=== PATIENT | male | born 1960 | race Caucasian/White ===

== ENCOUNTER 2020-07-23 11:06 | Outpatient (REF) | payer BC, SELFPAY ==
[2020-07-23 11:53] LABS: MANUAL DIFF FLAG NO
[2020-07-23 11:58] LABS: Glucose Urine UA NEG (NEG); Leukocyte Esterase Urine NEG (NEG); Nitrite Urine NEG (NEG); PH 5.5 (5.0-8.0); Specific Gravity - Urine >= 1.030 (1.005-1.025); Urine Blood NEG (NEG); Urine Ketones NEG (NEG); Urine Protein NEG (NEG-TRACE)
[2020-07-23 11:59] LABS: Basophils Absolute Auto 0.1 X10*3/uL (0.0-0.2); Basophils Percent Auto 1.5 % (0-2); Eosinophils Absolute Auto 0.4 X10*3/uL (0.0-0.4); Eosinophils Percent Auto 6.4 % (0-4); Hemoglobin 16.4 g/dl (14.0-18.0); Imm Gran Abs Auto 0.02 X10*3/uL (0.00-0.03); Imm Gran Pct Auto 0.3 % (0.0-0.4); Lymphocytes Absolute Auto 1.4 X10*3/uL (1.2-4.9); Lymphocytes Percent Auto 21.9 % (20-40); Mean Corpuscular HGB Conc 34.2 g/dl (31.0-36.0); Mean Corpuscular Hemoglobin 33.1 pg (27.0-33.0); Mean Corpuscular Volume 96.8 fL (80-98); Mean Platelet Volume 11.6 fL (9.4-12.4); Monocytes Absolute Auto 0.7 X10*3/uL (0.1-1.2); Monocytes Percent Auto 9.9 % (2-11); Neutrophils Absolute Auto 3.9 X10*3/uL (2.0-8.3); Platelet Count 257 X10*3/uL (160-400); Red Blood Count 4.96 X10*6/uL (4.60-5.80); Red Cell Distribution Width 12.3 % (11.0-16.0); White Blood Count 6.6 X10*3/uL (4.8-10.8)
[2020-07-23 12:02] LABS: Color Urine DARK YELLOW
[2020-07-23 12:03] LABS: Appearance Urine HAZY
[2020-07-23 12:11] LABS: Mucus Urine 2+ /LPF; RBC Urine 0 /HPF (0); Squamous Epithelial Cell Urine TRACE /LPF; WBC Urine 0 /HPF (0-4)
[2020-07-23 12:12] LABS: Amorphous Sediment Urine TRACE /LPF
[2020-07-23 12:19] LABS: Alanine Aminotransferase 94 U/L (0-40); Albumin Level 4.1 g/dL (3.5-5.0); Alkaline Phosphatase 92 U/L (39-117); Anion Gap 14 (12-20); Aspartate Amino Transferase 90 U/L (5-37); Bilirubin Total 0.9 mg/dL (0.0-1.0); Blood Urea Nitrogen 8 mg/dL (9-16); Calcium 8.9 mg/dL (8.4-10.2); Carbon Dioxide 24 mmol/L (22-29); Chloride 106 mmol/L (96-108); Cholesterol 174 mg/dL; Estimated Glomerular Filt Rate > 60; Glucose Fasting 101 mg/dL (60-99); HDL Cholesterol 29 mg/dL; LDL Cholesterol Calculated 130 mg/dl; Potassium 4.5 mmol/L (3.3-5.1); Sodium 139 mmol/L (135-145); Total Protein 7.8 g/dL (6.5-8.0); Triglycerides 77 mg/dL
[2020-07-23 12:42] LABS: Prostate Specific Antigen Scr 0.28 ng/mL (<0.05-4.0)
== END 2020-07-23 11:07 | disposition home or self-care (01) ==
LOC: HO.LAB 11:06
PROVIDERS: PCP Internal Medicine; Visit Provider Internal Medicine
DX: Z00.00 Encounter for general adult medical examination without abnormal findings (principal); Z13.220 Encounter for screening for lipoid disorders; Z12.5 Encounter for screening for malignant neoplasm of prostate
CPT/HCPCS: 36415; 80053; 80061; 81001; 84153; 85025

== ENCOUNTER 2020-10-22 11:09 | Outpatient (REF) | payer BC, SELFPAY ==
[2020-10-22 13:41] LABS: Alanine Aminotransferase 96 U/L (0-40); Albumin Level 4.5 g/dL (3.5-5.0); Alkaline Phosphatase 119 U/L (39-117); Anion Gap 13 (12-20); Aspartate Amino Transferase 116 U/L (5-37); Bilirubin Total 1.4 mg/dL (0.0-1.0); Blood Urea Nitrogen 7 mg/dL (9-16); Calcium 9.3 mg/dL (8.4-10.2); Carbon Dioxide 28 mmol/L (22-29); Chloride 103 mmol/L (96-108); Estimated Glomerular Filt Rate > 60; Glucose Random 107 mg/dL (60-115); Potassium 4.3 mmol/L (3.3-5.1); Sodium 140 mmol/L (135-145); Total Protein 8.2 g/dL (6.5-8.0)
== END 2020-10-22 11:10 | disposition home or self-care (01) ==
LOC: HO.LAB 11:09
PROVIDERS: PCP Internal Medicine; Visit Provider Internal Medicine
DX: I10 Essential (primary) hypertension (principal); R79.89 Other specified abnormal findings of blood chemistry
CPT/HCPCS: 36415; 80053

== ENCOUNTER 2020-11-03 05:08 | Emergency (ER) | payer BC, SELFPAY ==
--- NOTE | 2020-11-03 | ECG_ITS ---
Test Reason : REPEAT Blood Pressure : / mmHG Vent. Rate : 079 BPM Atrial Rate : 079 BPM P-R Int : 164 ms QRS Dur : 088 ms QT Int : 380 ms P-R-T Axes : 035 023 036 degrees QTc Int : 435 ms Normal sinus rhythm Normal ECG When compared with ECG of 03-NOV-2020 05:25, No significant change was found Referred By: Nadia Banks Electronically Signed By:Jcarlos Roberto
--- NOTE | ~2020-11-03 | CT_ITS ---
EXAMINATION: CT CHEST WITHOUT CONTRAST CLINICAL INFORMATION: Left chest wall pain and clavicular pain after fall. COMPARISON: None TECHNIQUE: Multidetector volumetric CT imaging of the chest was done. Axial MIP volume rendering provided. Sagittal and coronal reformatted images were obtained. This CT examination was performed using dose optimization techniques as appropriate, variously including the following: *Automated exposure control *Adjustment of mA and/or kV according to patient size (this includes techniques or standardized protocols for targeted exams where dose is matched to indication/reason for exam; i.e. extremities or head) *Use of iterative reconstruction technique DLP: 602 mGy-cm FINDINGS: EVIDENCE SPECIALIST: Hypoexpanded lungs LUNGS: The lungs are well-expanded with left lower lobe superior segment consolidation. There is minimal right posterior pleural thickening with focal right lower lobe posterior basal segment atelectasis. Rest of the lungs are well-expanded and clear. MEDIASTINUM: Heart size and the great vessels are normal caliber. There are coronary artery calcifications. Small shotty lymph nodes seen in the mediastinum. The central trachea and the bronchi are widely patent. Thyroid lobes are symmetrical and normal. PLEURA: There is a small left pleural effusion. There is minimal right posterior pleural thickening. AXILLA: No lymphadenopathy. UPPER ABDOMEN: Visualized liver, spleen, pancreas and bilateral adrenal glands are unremarkable. No lytic or sclerotic process seen. There is mild ventral spondylosis lower cervical spine. There is a punctate radiopaque foreign body likely posterior epidural space posterior T9 vertebra. OSSEOUS STRUCTURES: No lytic or sclerotic process seen. There is mild ventral spondylosis. CT/CT chest wo con IMPRESSION: Left lower lobe consolidation with minimal left pleural effusion. Right lower lobe posterior pleural thickening with atelectatic changes.
--- NOTE | ~2020-11-03 | CT_ITS ---
EXAMINATION: CT HEAD WITHOUT CONTRAST CLINICAL INFORMATION: Fall injury. COMPARISON: Head CT dated 03/07/2009. TECHNIQUE: Contiguous axial imaging was performed from the skull base to vertex without intravenous administration of contrast. This CT examination was performed using dose optimization techniques as appropriate, variously including the following: *Automated exposure control *Adjustment of mA and/or kV according to patient size (this includes techniques or standardized protocols for targeted exams where dose is matched to indication/reason for exam; i.e. extremities or head) *Use of iterative reconstruction technique DLP: 916 mGy-cm FINDINGS: Left posterior parietal soft tissue hematoma. No underlying skull fracture. There is no acute intracranial hemorrhage, midline shift, mass effect, intra- or extra-axial fluid collection. Garcia-white matter differentiation is preserved. Asymmetry of the lateral ventricles with relative increased caliber of the right lateral ventricle relative to the left, sequelae of prior right middle cerebral artery territory infarct. Otherwise the ventricles and sulci are unremarkable. The basal cisterns are patent. The orbital contents are unremarkable bilaterally. Visualized paranasal sinuses and mastoid air cells are clear. CT/CT head/brain wo con IMPRESSION: --Left posterior parietal soft tissue hematoma. No evidence of underlying skull fracture. --No acute intracranial hemorrhage. --Sequelae of prior right MCA territory infarct.
[2020-11-03 05:30] VITALS: BP 156/106; BP 164/87; PULSE 89; PULSE 99; RESP 14; TEMP 36; O2SAT 93; O2SAT 99; BMI 31.8
--- NOTE | 2020-11-03 05:52 | ED.EXTPRO ---
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 This patient is brought in by EMS for worsening left chest wall pain after he states he fell few days ago and hit his left side. He thinks he may have hit his head at that time and lost consciousness. Otherwise, he states that the pain is increasing and is exacerbated by deep inspiration. Otherwise he denies any fever, chills, shortness of breath, palpitations. Related Data Allergies Allergy/AdvReac Type Severity Reaction Status Date / Time No Known Allergies Allergy Unverified 01/29/20 15:38 Review of Systems Review of Systems: Pertinent positives and negatives as stated in HPI 10 point review of systems is otherwise negative. PMFSH Past Medical History Source: nursing notes reviewed Medical History Hypertension Stroke Social History Social History Patient Tobacco Use Status: Never used Tobacco Use of substances other than those prescribed or required for medical reasons: No Advance Directives: No Advance Directives Information Provided: No Physical Exam Vital Signs: Vital Signs: Last Vital Signs Temp 96.8 F 11/03/20 05:30 Pulse 89 11/03/20 05:30 Resp 14 11/03/20 05:30 BP 164/87 H 11/03/20 05:30 Pulse Ox 93 11/03/20 05:30 Body Mass Index 31.8 VITAL SIGNS: Reviewed. GENERAL: Well developed, well nourished, in no acute distress. HEAD: Normocephalic/atraumatic EYES: PERRLA, EOMI OROPHARYNX: no oral lesions noted, posterior pharynx clear NECK: Supple, no adenopathy LUNGS: Normal breath sounds. No adventitious sounds or accessory muscle use. SpO2<93>, left chest wall pain on palpation without crepitus CARDIOVASCULAR: Regular rate and rhythm without noted murmurs ABDOMEN: Soft, non-tender, non-distended with bowel sounds. LEFT SHOULDER: Abrasion to the posterior shoulder without evidence of erythema/induration NEUROLOGIC: Alert and oriented x 4. Sensation to light touch were grossly intact x 4. Left upper extremity with sensation intact but motor primarily isolated to movement at shoulder at baseline. Course Course Course Narrative: This is a 60-year-old male with history and clinical presentation consistent with likely rib fractures. Signed out to Dr Jeffery. MDM - Extremity (Nontraumatic) ECG Data Attestation EKG: I personally reviewed and interpreted this ECG as follows: Prior ECG tracings: not available for review Interpretation: Normal sinus rhythm, HR -90, no evidence of acute ischemia, GA/QRS/QTC are within normal limits.
[2020-11-03] MEDS: Ketorolac Tromethamine 15 MG/ML VIAL IM (07:07)
[2020-11-03] MEDS: Acetaminophen 325 MG TABLET 975 MG PO (07:11)
[2020-11-03 07:13] VITALS: BP 165/95; PULSE 85; RESP 18; O2SAT 92
--- NOTE | 2020-11-03 07:28 | ECG_ITS ---
Test Reason : CHEST PAIN Blood Pressure : / mmHG Vent. Rate : 090 BPM Atrial Rate : 090 BPM P-R Int : 160 ms QRS Dur : 090 ms QT Int : 376 ms P-R-T Axes : 024 011 024 degrees QTc Int : 459 ms Normal sinus rhythm Cannot rule out inferior infarct Abnormal ECG When compared to the previous EKG of Changes of inferior infarct present Referred By: Nadia Banks Electronically Signed By:Jcarlos Roberto
[2020-11-03 07:46] LABS: MANUAL DIFF FLAG NO
[2020-11-03 07:49] LABS: Basophils Absolute Auto 0.1 X10*3/uL (0.0-0.2); Basophils Percent Auto 1.1 % (0-2); Eosinophils Absolute Auto 0.3 X10*3/uL (0.0-0.4); Eosinophils Percent Auto 3.2 % (0-4); Hematocrit 44.4 % (42-52); Hemoglobin 15.2 g/dl (14.0-18.0); Imm Gran Abs Auto 0.07 X10*3/uL (0.00-0.03); Imm Gran Pct Auto 0.9 % (0.0-0.4); Lymphocytes Absolute Auto 0.9 X10*3/uL (1.2-4.9); Lymphocytes Percent Auto 11.2 % (20-40); Mean Corpuscular HGB Conc 34.2 g/dl (31.0-36.0); Mean Corpuscular Volume 96.3 fL (80-98); Monocytes Absolute Auto 0.8 X10*3/uL (0.1-1.2); Monocytes Percent Auto 10.2 % (2-11); Neutrophils Absolute Auto 5.8 X10*3/uL (2.0-8.3); Neutrophils Percent Auto 73.4 % (45-73); Platelet Count 182 X10*3/uL (160-400); Red Blood Count 4.61 X10*6/uL (4.60-5.80); Red Cell Distribution Width 13.3 % (11.0-16.0); White Blood Count 7.9 X10*3/uL (4.8-10.8)
[2020-11-03 08:03] LABS: COVID-19 Test Negative (Negative); IDNOW Serial# 9DD0AD1C
[2020-11-03 08:16] LABS: Alanine Aminotransferase 54 U/L (0-40); Alkaline Phosphatase 114 U/L (39-117); Anion Gap 15 (12-20); Aspartate Amino Transferase 64 U/L (5-37); Bilirubin Total 1.2 mg/dL (0.0-1.0); Blood Urea Nitrogen 10 mg/dL (9-16); Calcium 9.3 mg/dL (8.4-10.2); Carbon Dioxide 25 mmol/L (22-29); Chloride 102 mmol/L (96-108); Creatinine Clr Calc Pharmacy 116.4; Estimated Glomerular Filt Rate > 60; Glucose Random 115 mg/dL (60-115); Potassium 4.3 mmol/L (3.3-5.1); Sodium 138 mmol/L (135-145); Total Protein 7.5 g/dL (6.5-8.0)
[2020-11-03 08:30] VITALS: BP 150/89; PULSE 81; RESP 16; O2SAT 91
--- NOTE | 2020-11-03 08:30 | PC.NURSE ---
Patient is sitting up in bed in no distress. Pt states pain is much better and now rates pain a 3/10
[2020-11-03 10:37] VITALS: BP 149/85; PULSE 73; RESP 15; O2SAT 93
== END 2020-11-03 10:39 | disposition home or self-care (01) ==
PROVIDERS: Emergency Provider Student in an Organized Health Care Education/Training Program; PCP Internal Medicine
DX: J90 Pleural effusion, not elsewhere classified (principal); I10 Essential (primary) hypertension; I69.398 Other sequelae of cerebral infarction; Z20.822 Contact with and (suspected) exposure to COVID-19
CPT/HCPCS: 36415; 70450; 71250; 80053; 85025; 87635; 93005; 96372; 99285; J1885

== ENCOUNTER 2020-12-09 12:05 | Outpatient (REF) | payer BC, SELFPAY ==
[2020-12-09 15:01] LABS: Influenza A PCR NEGATIVE (Negative); Influenza B PCR NEGATIVE (Negative); Resp Syncy Virus RNA Qual PCR NEGATIVE (Negative); SARS COV2 PCR INHOUSE NEGATIVE (Negative)
== END 2020-12-09 12:06 | disposition home or self-care (01) ==
LOC: HO.10HDLNP 12:05
PROVIDERS: PCP Internal Medicine; Visit Provider Internal Medicine
DX: Z20.822 Contact with and (suspected) exposure to COVID-19 (principal)
CPT/HCPCS: 0241U

== ENCOUNTER 2020-12-16 12:03 | Emergency (ER) | payer BC, SELFPAY ==
--- NOTE | ~2020-12-16 | XR_ITS ---
EXAMINATION: XR LUMBOSACRAL SPINE CLINICAL INFORMATION: Status post fall with pain COMPARISON: None TECHNIQUE: Three views of the lumbosacral spine. FINDINGS: There are 5 nonrib bearing lumbar vertebra. No acute fracture, spondylolisthesis, or spondylolysis is appreciated. There is facet arthropathy seen at the L5-S1 level bilaterally. Disc spaces are maintained. Pedicles are intact. There is some degenerative change involving the sacroiliac joints bilaterally with question of fusion on the left. Schmorl's nodes are seen involving the T11-L1 vertebra. XR/XR lumbar spine 2-3V IMPRESSION: Degenerative change without evidence of acute fracture, spondylolisthesis, or spondylolysis of the lumbar spine.
[2020-12-16 12:12] VITALS: BP 129/66; BP 156/93; PULSE 79; PULSE 80; RESP 16; TEMP 36.6; O2SAT 94; O2SAT 96; BMI 31.8
--- NOTE | 2020-12-16 12:40 | ED_ITS ---
HPI - Back Pain/Injury General Chief Complaint: Back Pain/Injury Stated [facility] SPASMS Time Seen by Provider: 12/16/20 12:27 Source: patient and EMS Mode of arrival: EMS Limitations: no limitations History of Present Illness HPI Narrative: 60 y/o male with history of CVA in 2008 with residual left sided weakness who presents to the ER with lower back pain after he sustained a mechanical fall at home just prior to arrival. He reports hitting hit foot on the door frame of the bathroom as he was walking out. He fell onto his left side and was unable to get up because of low back pain and spasm. He did not hit his head or lose consciousness. He has no headache or neck pain. He is not on anticoagulation. He reports intermittent low back pain similar to now but not as bad as it is right now. At rest pain 6/10 but with coughing or movement it shoots up to a 10/10. No numbness, tingling, new weakness, no incontinence. MD elicited complaint: back pain, back injury and fall Pertinent past history: prior back pain Onset (ago): minute(s) (45) Timing: constant Severity: severe Pain scale (0-10): 6 Similar Symptoms Previously: Yes Quality: dull and aching Location: right lower back and left lower back Radiation: none Exacerbating factors: movement, sitting upright and coughing/sneezing Relieving factors: immobilization Context: fall Associated symptoms: denies other symptoms Work related injury: No Related Data Previous Rx's Medication Instructions Recorded azithromycin 250 mg tablet 250 mg PO DAILY #4 tab 11/03/20 cyclobenzaprine 10 mg tablet 10 mg PO TID PRN #12 tab 12/16/20 hydrocodone 5 mg-acetaminophen 325 1 tab PO Q8H PRN #7 tab 12/16/20 mg tablet ibuprofen 600 mg tablet 600 mg PO Q8H PRN #20 tab 12/16/20 lidocaine 5 % topical patch 1 patch TOPICAL DAILY #15 ea 12/16/20 (Lidoderm) Allergies Allergy/AdvReac Type Severity Reaction Status Date / Time No Known Allergies Allergy Unverified 01/29/20 15:38 Review of Systems Review of Systems: Constitutional: No Fever, No Chills ENT/Mouth: No sore throat, No Rhinorrhea, No Swallowing Difficulty Cardiovascular: No Chest Pain, No SOB, No Orthopnea, No Edema Respiratory: No Cough, No Sputum, No Wheezing, No dyspnea Gastrointestinal: No Nausea, No Vomiting, No Diarrhea, No abdominal Pain Genitourinary: No Dysuria, No Urinary Frequency, No Hematuria Musculoskeletal: No joint pain, + Myalgias Skin: No Skin Lesions, No rash Neuro: No Weakness, No Numbness, No Dizziness, No Headache Psych: No Anxiety/Panic, No Depression Heme/Lymph: No Bruising, No Lymphadenopathy PMFSH Past Medical History Attestation statement: The following information was validated with the patient. Medical History Hypertension Stroke Social History Social History Patient Tobacco Use Status: Never used Tobacco Advance Directives: No Advance Directives Information Provided: Yes Physical Exam Vital Signs: Vital Signs: Last Vital Signs Temp 97.5 F 12/16/20 15:34 Pulse 79 12/16/20 15:34 Resp 16 12/16/20 15:34 BP 144/77 H 12/16/20 15:34 Pulse Ox 94 12/16/20 15:34 Body Mass Index 31.8 Appearance: Alert. Oriented X3. No acute distress. HEENT: normal inspection, atraumatic CVS: Normal heart rate and rhythm. Pulses normal. Respiratory: No respiratory distress. Nontender chest wall Skin: Skin warm and dry. Normal skin color. Normal skin turgor. No rashes. Back: middle lower back soft tissue tenderness with palpable spasm. no spinal tenderness. Extremities: atraumatic, no signs of injury Neuro: Oriented X 3. Left sided weakness. ambulates with slow but steady gait, dragging left foot which is his baseline. Course Course Course Narrative: 60 y/o male presenting with lower back pain s/p mechanical fall. No LOC or other injuries noted. No prodromal symptoms prior to fall. He c/o severe back pain and spasm on arrival. Pain does not radiate and he has no new weakness, no deficits. Will get lumbar spine XR to r/o compression fx. Toradol and Vicoden ordered for pain. Will reassess. Reevaluation(s) Reevaluation #1: XR showing only degenerative changes. Pain somewhat improved with meds however ROM remains limited. Laying in the stretcher not helping. Ice applied and flexeril and salonpas also ordered. Reevaluation #2: Patient is feeling better. He is up ambulating to the bathroom with slow but steady gait, baseline limp. He is stable for discharge with pain control and plan to f/u with his PCP. Discharge Plan Discharge Clinical Impression: Strain of lumbar region Qualifiers: Encounter type: initial encounter Qualified Code(s): S39.012A - Strain of muscle, fascia and tendon of lower back, initial encounter Patient Disposition: Home, Self-Care Instructions: Fall Prevention for Older Adults (ED), Low Back Strain (ED), Lower Back Exercises (ED) Additional Instructions: Your x-ray of your back did not show any acute injuries. Your pain is most likely due to musclar strain and spasm. No bending, lifting or twisting. Use ice several times per day for 20 minutes at a time for the next 48 hours and then change to heat. Take medications as prescribed to help with pain and discomfort. Follow up with your Primary Care Doctor this week. If your pain worsens, if you develop new numbness, tingling, weakness, loss of function or incontinence call 911 or come back to the ER right away for evaluation. Prescriptions: New cyclobenzaprine 10 mg tablet 10 mg PO TID PRN (Reason: muscle spasm) Qty: 12 RF: 0 lidocaine [Lidoderm] 5 % adhesive patch,medicated 1 patch topical DAILY Qty: 15 RF: 0 ibuprofen 600 mg tablet 600 mg PO Q8H PRN (Reason: pain) Qty: 20 RF: 0 hydrocodone-acetaminophen 5-325 mg tablet 1 tab PO Q8H PRN (Reason: pain) Qty: 7 RF: 0 No Action azithromycin 250 mg tablet 250 mg PO DAILY Qty: 4 RF: 0 Interventions: ED Discharge Assessment Last Done: 12/16/20 16:11 Discharge Date/Time: 12/16/20 16:12
[2020-12-16] MEDS: HYDROcodone Bit/Acetam 5/325 TABLET 1 TAB PO (12:45)
[2020-12-16] MEDS: Ketorolac Tromethamine 15 MG/ML VIAL 30 MG IM (12:46)
[2020-12-16] MEDS: Cyclobenzaprine HCl 10 MG TABLET PO (14:17)
[2020-12-16] MEDS: Lidocaine 4 % Patch ADH..PATCH 1 PATCH TRANSDERMA (14:18)
[2020-12-16 15:34] VITALS: BP 144/77; PULSE 79; RESP 16; TEMP 36.4; O2SAT 94
== END 2020-12-16 16:12 | disposition home or self-care (01) ==
PROVIDERS: Emergency Provider Emergency Medicine; PCP Internal Medicine
DX: S39.012A Strain of muscle, fascia and tendon of lower back, initial encounter (principal); X58.XXXA Exposure to other specified factors, initial encounter; Y93.9 Activity, unspecified; Y92.9 Unspecified place or not applicable; Y99.9 Unspecified external cause status; Z79.899 Other long term (current) drug therapy
CPT/HCPCS: 72100; 96372; 99284; J1885

== ENCOUNTER 2021-02-24 13:24 | Outpatient (REF) | payer BC, SELFPAY ==
[2021-02-24 13:39] LABS: MANUAL DIFF FLAG NO
[2021-02-24 14:01] LABS: Basophils Absolute Auto 0.1 X10*3/uL (0.0-0.2); Basophils Percent Auto 1.2 % (0-2); Eosinophils Absolute Auto 0.4 X10*3/uL (0.0-0.4); Eosinophils Percent Auto 6.5 % (0-4); Hematocrit 46.3 % (42-52); Hemoglobin 15.7 g/dl (14.0-18.0); Imm Gran Abs Auto 0.03 X10*3/uL (0.00-0.03); Imm Gran Pct Auto 0.5 % (0.0-0.4); Lymphocytes Absolute Auto 1.1 X10*3/uL (1.2-4.9); Mean Corpuscular HGB Conc 33.9 g/dl (31.0-36.0); Mean Corpuscular Hemoglobin 33.1 pg (27.0-33.0); Mean Corpuscular Volume 97.5 fL (80-98); Mean Platelet Volume 10.1 fL (9.4-12.4); Monocytes Absolute Auto 0.4 X10*3/uL (0.1-1.2); Monocytes Percent Auto 7.7 % (2-11); Neutrophils Absolute Auto 3.7 X10*3/uL (2.0-8.3); Neutrophils Percent Auto 64.1 % (45-73); Platelet Count 177 X10*3/uL (160-400); Red Blood Count 4.75 X10*6/uL (4.60-5.80); Red Cell Distribution Width 13.7 % (11.0-16.0); White Blood Count 5.7 X10*3/uL (4.8-10.8)
[2021-02-24 14:31] LABS: Alanine Aminotransferase 111 U/L (0-40); Albumin Level 4.4 g/dL (3.5-5.0); Alkaline Phosphatase 91 U/L (39-117); Anion Gap 17 (12-20); Aspartate Amino Transferase 142 U/L (5-37); Bilirubin Total 1.2 mg/dL (0.0-1.0); Blood Urea Nitrogen 7 mg/dL (9-16); Calcium 9.5 mg/dL (8.4-10.2); Carbon Dioxide 23 mmol/L (22-29); Chloride 105 mmol/L (96-108); Cholesterol 264 mg/dL; Estimated Glomerular Filt Rate > 60; Glucose Random 96 mg/dL (60-115); HDL Cholesterol 45 mg/dL; LDL Cholesterol Calculated 189 mg/dl; Potassium 4.5 mmol/L (3.3-5.1); Sodium 140 mmol/L (135-145); Total Protein 8.3 g/dL (6.5-8.0); Triglycerides 150 mg/dL
== END 2021-02-24 13:25 | disposition home or self-care (01) ==
LOC: HO.LAB 13:24
PROVIDERS: PCP Internal Medicine; Visit Provider Internal Medicine
DX: E78.00 Pure hypercholesterolemia, unspecified (principal); I10 Essential (primary) hypertension; Z86.73 Personal history of transient ischemic attack (TIA), and cerebral infarction without residual deficits; Z12.5 Encounter for screening for malignant neoplasm of prostate
CPT/HCPCS: 36415; 80053; 80061; 84153; 85025

== ENCOUNTER 2021-02-25 12:46 | Outpatient (REF) | payer BC, SELFPAY ==
[2021-02-25 13:33] LABS: MANUAL DIFF FLAG NO
[2021-02-25 13:37] LABS: Basophils Absolute Auto 0.1 X10*3/uL (0.0-0.2); Basophils Percent Auto 1.3 % (0-2); Eosinophils Absolute Auto 0.3 X10*3/uL (0.0-0.4); Hematocrit 47.7 % (42-52); Hemoglobin 16.2 g/dl (14.0-18.0); Imm Gran Abs Auto 0.05 X10*3/uL (0.00-0.03); Imm Gran Pct Auto 0.8 % (0.0-0.4); Lymphocytes Percent Auto 16.5 % (20-40); Mean Corpuscular Hemoglobin 33.1 pg (27.0-33.0); Mean Corpuscular Volume 97.5 fL (80-98); Mean Platelet Volume 10.3 fL (9.4-12.4); Monocytes Absolute Auto 0.5 X10*3/uL (0.1-1.2); Monocytes Percent Auto 7.8 % (2-11); Neutrophils Absolute Auto 4.3 X10*3/uL (2.0-8.3); Neutrophils Percent Auto 68.6 % (45-73); Platelet Count 189 X10*3/uL (160-400); Red Blood Count 4.89 X10*6/uL (4.60-5.80); Red Cell Distribution Width 13.9 % (11.0-16.0); White Blood Count 6.3 X10*3/uL (4.8-10.8)
[2021-02-25 14:03] LABS: B Type Natriuretic Peptide 25 pg/mL (<100)
[2021-02-25 14:04] LABS: Alanine Aminotransferase 119 U/L (0-40); Albumin Level 4.6 g/dL (3.5-5.0); Alkaline Phosphatase 94 U/L (39-117); Anion Gap 16 (12-20); Aspartate Amino Transferase 157 U/L (5-37); Bilirubin Total 1.1 mg/dL (0.0-1.0); Blood Urea Nitrogen 8 mg/dL (9-16); Calcium 9.6 mg/dL (8.4-10.2); Carbon Dioxide 25 mmol/L (22-29); Chloride 105 mmol/L (96-108); Estimated Glomerular Filt Rate > 60; Glucose Random 93 mg/dL (60-115); Potassium 4.8 mmol/L (3.3-5.1); Sodium 141 mmol/L (135-145); Total Protein 8.7 g/dL (6.5-8.0)
[2021-02-25 14:23] LABS: Thyroid Stimulating Hormone 3.46 uIU/mL (0.32-4.0)
== END 2021-02-25 12:47 | disposition home or self-care (01) ==
LOC: HO.10HDL 12:46
PROVIDERS: Visit Provider Internal Medicine
DX: Z86.73 Personal history of transient ischemic attack (TIA), and cerebral infarction without residual deficits (principal); R94.5 Abnormal results of liver function studies; I10 Essential (primary) hypertension; R60.9 Edema, unspecified
CPT/HCPCS: 36415; 80053; 83880; 84443; 85025

== ENCOUNTER 2021-12-28 11:31 | Outpatient (REF) | payer BC, SELFPAY ==
[2021-12-28 11:52] LABS: MANUAL DIFF FLAG NO
[2021-12-28 12:26] LABS: Basophils Absolute Auto 0.1 X10*3/uL (0.0-0.2); Eosinophils Absolute Auto 0.4 X10*3/uL (0.0-0.4); Eosinophils Percent Auto 5.9 % (0-4); Hematocrit 48.3 % (42.0-52.0); Hemoglobin 16.1 g/dl (14.0-18.0); Imm Gran Abs Auto 0.04 X10*3/uL (0.00-0.03); Imm Gran Pct Auto 0.6 % (0.0-0.4); Lymphocytes Percent Auto 14.6 % (20-40); Mean Corpuscular HGB Conc 33.3 g/dl (31.0-36.0); Mean Platelet Volume 10.3 fL (9.4-12.4); Monocytes Absolute Auto 0.6 X10*3/uL (0.1-1.2); Monocytes Percent Auto 8.1 % (2-11); Neutrophils Absolute Auto 4.7 x10*3/uL (2.0-8.3); Neutrophils Percent Auto 69.8 % (45-73); Platelet Count 163 X10*3/uL (160-400); Red Blood Count 5.03 X10*6/uL (4.60-5.80); White Blood Count 6.8 X10*3/uL (4.8-10.8)
[2021-12-28 13:00] LABS: Alanine Aminotransferase 189 U/L (0-40); Albumin Level 4.3 g/dL (3.5-5.0); Alkaline Phosphatase 97 U/L (39-117); Anion Gap 17 (12-20); Aspartate Amino Transferase 228 U/L (5-37); Blood Urea Nitrogen 10 mg/dL (9-16); Carbon Dioxide 24 mmol/L (22-29); Chloride 103 mmol/L (96-108); Cholesterol 223 mg/dL; Estimated Glomerular Filt Rate > 60; Glucose Fasting 102 mg/dL (60-99); HDL Cholesterol 42 mg/dL; LDL Cholesterol Calculated 166 mg/dl; Potassium 4.4 mmol/L (3.3-5.1); Sodium 140 mmol/L (135-145); Total Protein 8.4 g/dL (6.5-8.0); Triglycerides 75 mg/dL
== END 2021-12-28 11:32 | disposition home or self-care (01) ==
LOC: HO.LAB 11:31
PROVIDERS: PCP Internal Medicine; Visit Provider Internal Medicine
DX: I10 Essential (primary) hypertension (principal); K21.9 Gastro-esophageal reflux disease without esophagitis; R79.89 Other specified abnormal findings of blood chemistry
CPT/HCPCS: 36415; 80053; 80061; 85025

== ENCOUNTER 2022-03-08 10:14 | Outpatient (REF) | payer BC, SELFPAY ==
[2022-03-08 11:24] LABS: Alanine Aminotransferase 92 U/L (0-40); Albumin Level 4.5 g/dL (3.5-5.0); Alkaline Phosphatase 86 U/L (39-117); Aspartate Amino Transferase 97 U/L (5-37); Bilirubin Direct 0.3 mg/dL (0.0-0.5); Bilirubin Total 0.5 mg/dL (0.0-1.0); Total Protein 8.4 g/dL (6.5-8.0)
== END 2022-03-08 10:15 | disposition home or self-care (01) ==
LOC: HO.LAB 10:14
PROVIDERS: PCP Internal Medicine; Visit Provider Internal Medicine
DX: R79.89 Other specified abnormal findings of blood chemistry (principal)
CPT/HCPCS: 36415; 80076

== ENCOUNTER 2022-09-05 11:07 | Outpatient (REF) | payer BC, SELFPAY ==
[2022-09-05 13:54] LABS: MANUAL DIFF FLAG NO
[2022-09-05 14:06] LABS: Basophils Absolute Auto 0.1 X10*3/uL (0.0-0.2); Basophils Percent Auto 1.3 % (0-2); Eosinophils Absolute Auto 0.5 X10*3/uL (0.0-0.4); Eosinophils Percent Auto 5.2 % (0-4); Hematocrit 46.6 % (42.0-52.0); Hemoglobin 15.5 g/dl (14.0-18.0); Imm Gran Abs Auto 0.03 X10*3/uL (0.00-0.03); Imm Gran Pct Auto 0.3 % (0.0-0.4); Lymphocytes Absolute Auto 1.9 X10*3/uL (1.2-4.9); Lymphocytes Percent Auto 22.5 % (20-40); Mean Corpuscular HGB Conc 33.3 g/dl (31.0-36.0); Mean Corpuscular Hemoglobin 31.6 pg (27.0-33.0); Mean Corpuscular Volume 95.1 fL (80.0-98.0); Mean Platelet Volume 11.2 fL (9.4-12.4); Monocytes Absolute Auto 0.7 X10*3/uL (0.1-1.2); Monocytes Percent Auto 7.6 % (2-11); Neutrophils Absolute Auto 5.4 x10*3/uL (2.0-8.3); Neutrophils Percent Auto 63.1 % (45-73); Platelet Count 221 X10*3/uL (160-400); Red Cell Distribution Width 12.6 % (11.0-16.0); White Blood Count 8.6 X10*3/uL (4.8-10.8)
[2022-09-05 14:23] LABS: Alanine Aminotransferase 25 U/L (0-40); Albumin Level 4.2 g/dL (3.5-5.0); Alkaline Phosphatase 99 U/L (39-117); Anion Gap 14 (12-20); Aspartate Amino Transferase 26 U/L (5-37); Bilirubin Total 0.7 mg/dL (0.0-1.0); Blood Urea Nitrogen 8 mg/dL (9-16); Calcium 9.5 mg/dL (8.4-10.2); Carbon Dioxide 28 mmol/L (22-29); Chloride 104 mmol/L (96-108); Cholesterol 205 mg/dL; Estimated Glomerular Filt Rate > 60; Glucose Fasting 109 mg/dL (60-99); HDL Cholesterol 37 mg/dL; LDL Cholesterol Calculated 151 mg/dl; Potassium 4.3 mmol/L (3.3-5.1); Sodium 142 mmol/L (135-145); Total Protein 8.1 g/dL (6.5-8.0); Triglycerides 86 mg/dL
[2022-09-05 14:38] LABS: Prostate Specific Antigen Scr 0.23 ng/mL (<0.05-4.0)
== END 2022-09-05 11:08 | disposition home or self-care (01) ==
LOC: HO.WFDLDS 11:07
PROVIDERS: Visit Provider Internal Medicine
DX: Z00.00 Encounter for general adult medical examination without abnormal findings (principal); Z12.5 Encounter for screening for malignant neoplasm of prostate; Z86.73 Personal history of transient ischemic attack (TIA), and cerebral infarction without residual deficits
CPT/HCPCS: 36415; 80053; 80061; 84153; 85025

== ENCOUNTER 2022-12-14 13:49 | Outpatient (REF) | payer BC, SELFPAY ==
--- NOTE | ~2022-12-14 | US_ITS ---
EXAMINATION: US VENOUS WITH DOPPLER UPPER EXTREMITY, LEFT CLINICAL INFORMATION: Left arm pain evaluate for DVT COMPARISON: None available. TECHNIQUE: Ultrasound of the upper extremity is performed using compression sonography and color and pulse Doppler flow with assessment of augmentation of flow. There is also imaging and Doppler assessment of the jugular and subclavian veins. Spectral analysis with color-flow imaging is performed. FINDINGS: Respiratory variation, normal compression, and augmented flow are noted throughout the upper extremity including the axillary, brachial, cubital, and radial and ulnar veins. There is normal flow in the internal jugular and subclavian veins. There is no visible deep or superficial thrombophlebitis. If the patient's symptoms progress, a followup ultrasound in 5 -7 days might be of value to exclude proximal propagation from a nonvisualized distal arm vein. US/US venous duplex UE LT IMPRESSION: No DVT demonstrated in the left upper extremity
[2022-12-14 15:47] LABS: Alanine Aminotransferase 22 U/L (0-40); Albumin Level 4.4 g/dL (3.5-5.0); Alkaline Phosphatase 104 U/L (39-117); Anion Gap 16 (12-20); Aspartate Amino Transferase 26 U/L (5-37); Bilirubin Total 0.7 mg/dL (0.0-1.0); Blood Urea Nitrogen 9 mg/dL (9-16); Calcium 9.9 mg/dL (8.4-10.2); Carbon Dioxide 23 mmol/L (22-29); Chloride 105 mmol/L (96-108); Estimated Glomerular Filt Rate > 60; Glucose Random 94 mg/dL (60-115); Potassium 4.2 mmol/L (3.3-5.1); Sodium 140 mmol/L (135-145); Total Protein 8.8 g/dL (6.5-8.0); Uric Acid 7.3 mg/dL (3.4-7.0)
[2022-12-14 15:59] LABS: Erythrocyte Sedimentation Rate 23 MM/HR (0-15)
== END 2022-12-14 13:50 | disposition home or self-care (01) ==
LOC: HO.US 13:49
PROVIDERS: PCP Internal Medicine; Visit Provider Internal Medicine
DX: M25.562 Pain in left knee (principal); I10 Essential (primary) hypertension; Z86.73 Personal history of transient ischemic attack (TIA), and cerebral infarction without residual deficits; Z86.718 Personal history of other venous thrombosis and embolism
CPT/HCPCS: 36415; 80053; 84550; 85652; 86140; 93971

== ENCOUNTER 2023-06-29 11:38 | Outpatient (REF) | payer BC, SELFPAY ==
[2023-06-29 14:36] LABS: MANUAL DIFF FLAG NO
[2023-06-29 14:37] LABS: Basophils Absolute Auto 0.1 X10*3/uL (0.0-0.2); Basophils Percent Auto 1.2 % (0-2); Eosinophils Absolute Auto 0.3 X10*3/uL (0.0-0.4); Eosinophils Percent Auto 3.8 % (0-4); Hematocrit 46.4 % (42.0-52.0); Hemoglobin 15.2 g/dl (14.0-18.0); Imm Gran Abs Auto 0.04 X10*3/uL (0.00-0.03); Imm Gran Pct Auto 0.5 % (0.0-0.4); Lymphocytes Absolute Auto 1.3 X10*3/uL (1.2-4.9); Lymphocytes Percent Auto 15.5 % (20-40); Mean Corpuscular HGB Conc 32.8 g/dl (31.0-36.0); Mean Corpuscular Hemoglobin 29.3 pg (27.0-33.0); Mean Corpuscular Volume 89.6 fL (80.0-98.0); Mean Platelet Volume 10.7 fL (9.4-12.4); Monocytes Absolute Auto 0.6 X10*3/uL (0.1-1.2); Monocytes Percent Auto 7.7 % (2-11); Neutrophils Absolute Auto 5.8 x10*3/uL (2.0-8.3); Neutrophils Percent Auto 71.3 % (45-73); Platelet Count 244 X10*3/uL (160-400); Red Blood Count 5.18 X10*6/uL (4.60-5.80); Red Cell Distribution Width 13.2 % (11.0-16.0); White Blood Count 8.2 X10*3/uL (4.8-10.8)
[2023-06-29 15:10] LABS: Alanine Aminotransferase 24 U/L (0-40); Albumin Level 4.2 g/dL (3.5-5.0); Alkaline Phosphatase 98 U/L (39-117); Anion Gap 14 (12-20); Aspartate Amino Transferase 28 U/L (5-37); Bilirubin Total 0.9 mg/dL (0.0-1.0); Blood Urea Nitrogen 10 mg/dL (9-16); Calcium 9.5 mg/dL (8.4-10.2); Carbon Dioxide 28 mmol/L (22-29); Chloride 102 mmol/L (96-108); Cholesterol 207 mg/dL (<200); Estimated Glomerular Filt Rate > 60; Glucose Fasting 91 mg/dL (60-99); HDL Cholesterol 31 mg/dL (>40); LDL Cholesterol Calculated 155 mg/dL (<100); Potassium 4.4 mmol/L (3.3-5.1); Sodium 140 mmol/L (135-145); Total Protein 8.3 g/dL (6.5-8.0); Triglycerides 105 mg/dL (<150)
== END 2023-06-29 11:39 | disposition home or self-care (01) ==
LOC: HO.WFDLDS 11:38
PROVIDERS: Visit Provider Internal Medicine
DX: I10 Essential (primary) hypertension (principal); E78.00 Pure hypercholesterolemia, unspecified
CPT/HCPCS: 36415; 80053; 80061; 85025

== ENCOUNTER 2024-05-19 14:26 | Outpatient (REF) | payer BC, SELFPAY ==
--- OUTSIDE RECORDS SUMMARY | 2024-05-19 16:48 | XMS_ITS ---
Author Organization [facility] Address [address] [facility] [address] [place] [address] Care Team Providers Care Weekend Anchor Name Role Phone Claudy Lgoan MD Primary Care Provider Unavaila Kaden Cruz Jr REASON FOR VISIT Patient presents today for a SCREENING COLON Encounters Encounter Location Date Provider Diagnosis [facility] [address] [facility] [address] [place] [phone] 05/02/2024 Kaden Calderon Jr PLAN OF TREATMENT Next Appt Details Provider Name:Kaden cabrera Jr, 08/25/2024 09:40:00 AM, [address] [place] [address], [address], [place], [phone],
--- OUTSIDE RECORDS SUMMARY | 2024-05-19 16:48 | XMS_ITS ---
Author Organization [facility] Address [address] [place] [address] Care Team Providers Care Cocoa Milling Machine Operator Name Role Phone Claudy Logan MD Primary Care Provider UnavailKaden Persaud Jr REASON FOR VISIT r/s sunday the to august. Encounters Encounter Location Date Provider Diagnosis [facility] [address] [facility] [address] [place] [address] 04/30/2024 Kaden Calderon Jr PLAN OF TREATMENT Next Appt Details Provider Name:Kaden cabrera Jr, 08/25/2024 09:40:00 AM, [address] [facility], [address], [place], [address],
--- OUTSIDE RECORDS SUMMARY | 2024-05-19 16:49 | XMS_ITS | Patient Health Record ---
Author Organization [facility] Address [address] [place] [address] Care Team Providers Care Professor Of Architecture Name Role Phone Claudy Logan MD Primary Care Provider Kaden Starr Jr REASON FOR REFERRAL No Information SOCIAL HISTORY Sex Assigned At : Social History Observation Description Sex Assigned At Unknown Encounters Encounter Location Date Provider Diagnosis [facility] [address] [place] [address] [place] [phone] 05/02/2024 Kaden Calderon Jr [facility] [address] [place] [phone] 04/30/2024 Kaden Calderon Jr PLAN OF TREATMENT Next Appt Details Provider Name:Kaden cabrera Jr, 08/25/2024 09:40:00 AM, [address] [place] [address], [address], [place], [phone], Insurance Providers Payer Name Payer Address Payer Phone Subscriber Number Group Number Insured Name Patient Relationship to Insured Coverage Start Date Coverage End Date [facility] [address] [place], [place] [id number] PRAVEEN RICHARDSON Self - patient is the insured
[2024-05-19 17:42] LABS: MANUAL DIFF FLAG NO
[2024-05-19 17:53] LABS: Basophils Absolute Auto 0.1 X10*3/uL (0.0-0.2); Basophils Percent Auto 1.3 % (0-2); Eosinophils Absolute Auto 0.3 X10*3/uL (0.0-0.4); Hematocrit 47.7 % (42.0-52.0); Hemoglobin 15.8 g/dl (14.0-18.0); Imm Gran Abs Auto 0.05 X10*3/uL (0.00-0.03); Imm Gran Pct Auto 0.7 % (0.0-0.4); Lymphocytes Absolute Auto 1.3 X10*3/uL (1.2-4.9); Lymphocytes Percent Auto 17.8 % (20-40); Mean Corpuscular HGB Conc 33.1 g/dl (31.0-36.0); Mean Corpuscular Volume 87.5 fL (80.0-98.0); Mean Platelet Volume 10.9 fL (9.4-12.4); Monocytes Absolute Auto 0.6 X10*3/uL (0.1-1.2); Monocytes Percent Auto 8.4 % (2-11); Neutrophils Percent Auto 67.8 % (45-73); Platelet Count 237 X10*3/uL (160-400); Red Blood Count 5.45 X10*6/uL (4.60-5.80); Red Cell Distribution Width 13.8 % (11.0-16.0); White Blood Count 7.4 X10*3/uL (4.8-10.8)
[2024-05-19 18:06] LABS: Alanine Aminotransferase 43 U/L (0-40); Albumin Level 4.4 g/dL (3.5-5.0); Alkaline Phosphatase 95 U/L (39-117); Anion Gap 13 (12-20); Aspartate Amino Transferase 42 U/L (5-37); Bilirubin Total 0.7 mg/dL (0.0-1.0); Blood Urea Nitrogen 8 mg/dL (9-16); Calcium 9.5 mg/dL (8.4-10.2); Carbon Dioxide 24 mmol/L (22-29); Chloride 107 mmol/L (96-108); Estimated Glomerular Filt Rate > 60; Glucose Random 117 mg/dL (60-115); Potassium 4.2 mmol/L (3.3-5.1); Sodium 140 mmol/L (135-145); Total Protein 8.3 g/dL (6.5-8.0)
== END 2024-05-19 14:27 | disposition home or self-care (01) ==
LOC: HO.WFDLDS 14:26
PROVIDERS: Visit Provider Internal Medicine
DX: I10 Essential (primary) hypertension (principal); R74.01 Elevation of levels of liver transaminase levels
CPT/HCPCS: 36415; 80053; 85025

== ENCOUNTER 2024-09-18 11:36 | Outpatient (AMB) | payer BC, SELFPAY ==
--- NOTE | 2024-09-18 11:09 | MHC.PC.OV ---
Vital Signs 09/18/24 11:43 Weight 262 lb BP 136/80 Blood Pressure Location Rt brachial Position Sitting Pulse 80 Pulse Source Pulse Oximeter Temp 97.8 F Temp Source Axillary Pulse Oximetry (%) 95 Oxygen Delivery Method Room Air Intake Visit Reasons: Routine Energy Attorney Required: No Accompanied by: Self / Same As Patient Allergies No Known Allergies Allergy (Verified 09/19/24 09:08) Tobacco use date assessed: 09/18/24 Fall risk assessment: No Falls in past year Last assessed Fall Risk: 09/18/24 Dental Screening Dental Screen Date: 09/18/24 Did you have a dental visit in the last 12 months?: Yes Did you have a dental problem in the last 6 months where you did not have access to dental care?: No HPI HPI Comments History of Present Illness Details The patient is a 63 year old male with a past medical history of CVA 2009 s/p left hemiparesis, hypertension, GERD, elevated lfts depression presenting for follow up. Last visit May HTN: on lisinopril. Blood pressure is controlled. No chest pain, dypsnea GERD: On PPI. Follows with [email or web address]. Has a baclofen pump Colonoscopy is scheduled for tomorrow ROS CONSTITUTIONAL: Denies weight loss, fever and chills. HEENT: Denies changes in vision and hearing. RESPIRATORY: Denies SOB and cough. CV: Denies palpitations and CP GI: Denies abdominal pain, nausea, vomiting and diarrhea. : Denies dysuria and urinary frequency. MSK: Denies new myalgia and joint pain. SKIN: Denies rash and pruritus. NEUROLOGICAL: Denies headache PSYCHIATRIC: Denies recent changes in mood. PHYSICAL EXAM: GENERAL: Alert and oriented x 3. NAD EYES: EOMI. Anicteric. HENT: Moist mucous membranes. No scleral icterus. No cervical lymphadenopathy. LUNGS: Clear to auscultation bilaterally. CARDIOVASCULAR: Regular rate and rhythm. No murmur. No JVD. ABDOMEN: Soft, non-tender +bs EXTREMITIES: No edema. Non-tender. SKIN: No rashes or lesions. Warm. NEUROLOGIC: No focal neurological deficits. CN II-XII grossly intact PSYCHIATRIC: Cooperative. 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 Father No problems noted. Social History Household Members: Spouse Housing: House Are you a primary caregiver assisted living to a significant other at home: No Patient Tobacco Use Status: Never used Tobacco e-Cigarette/Vaping Use: Never Used Use of substances other than those prescribed or required for medical reasons: No Have you been hit, kicked, punched, or otherwise hurt by someone within the past year? If so, by whom?: No Are you DNR?: No Advance Directives: No Advance Directives Information Provided: Yes Advance Directives on File: No Poor oral hygiene: No service: No Current occupational status: retired Cognitive needs: No Hearing needs: No Vision needs: Yes (rx glasses) Questionnaire PHQ-9 Over the last 2 weeks, how often have you been bothered by any of the following problems? 1. Little interest or pleasure in doing things: not at all 2. Feeling down, depressed, or hopeless: not at all 3. Trouble falling or staying asleep, or sleeping too much: not at all 4. Feeling tired or having little energy: not at all 5. Poor appetite or overeating: not at all 6. Feeling bad about yourself - or that you are a failure or have let yourself or your family down: not at all 7. Trouble concentrating on things, such as reading the newspaper or watching television: not at all 8. Moving or speaking so slowly that other people could have noticed. Or the opposite - being so fidgety or restless that you have been moving around a lot more than usual: not at all 9. Thoughts that you would be better off or of hurting yourself in some way: not at all Total score: 0 Depression Screening Interpretation: Negative Depression Screening Done: Yes 33258 - PHQ-9 Billing: Yes Source: Developed by Drs. Jos Tang, Wilman Sánchez and colleagues, with an educational gabi from [employer]. Thrive Questionnaire Date Thrive assessed: 09/18/24 I am a: Patient Within the past 12 months, did the food you bought not last and you didn't have the money to get more?: Never true Within the past 12 months, did you worry whether your food would run out before you got money to buy more?: Never true Do you have trouble paying for medicines?: No Do you have trouble getting transportation to medical appointments?: No Do you have trouble paying your heating and electricity bill?: No Do you have trouble taking care of your child, family member or friend?: No Do you have trouble with day-to-day activities such as bathing, preparing meals, shopping, managing finances, etc.?: No Are you currently unemployed and looking for a job?: No Are you interested in more education?: No THRIVE Score: 0 AUDIT C Alcohol Use Questionnaire (AUDIT-C) 1. How often do you have a drink containing alcohol?: Never 3. How often do you have six or more drinks on one occasion?: Never Total Score: 0 MAHOGANY-7 AMB Questionnaire MAHOGANY-7 Date MAHOGANY - 7 assessed: 09/18/24 Feeling nervous, anxious, or on edge: 0 = Not at all Not being able to stop or control worryin = Not at all Worrying too much about different things: 0 = Not at all Trouble relaxin = Not at all Being so restless that it is hard to sit still: 0 = Not at all Becoming easily annoyed or irritable: 0 = Not at all Feeling afraid as if something awful might happen: 0 = Not at all Total MAHOGANY-7 score (0-4 normal; 5-9 mild; 10-14 moderate; 15-21 severe): 0 Source: Developed by Drs. Jos Tang, Razia Harper, Wilman Figueroa and colleagues, with an educational gabi from [employer]. Physical exam (Primary Care) Vital Signs: Last Vital Signs Temp 97.8 F 09/18/24 11:43 Pulse 80 09/18/24 11:43 BP 136/80 09/18/24 11:43 Pulse Ox 95 09/18/24 11:43 Oxygen Delivery Method Room Air 09/18/24 11:43 Tobacco/Smoking Status: Tobacco use Status Tobacco use date assessed 09/18/24 09/18/24 11:10 Patient Tobacco Use Status Never used Tobacco 09/18/24 11:10 e-Cigarette/Vaping Use Never Used 09/18/24 11:10 PHQ-9: PHQ-9 Score PHQ-9: Total score 0 09/18/24 12:06 Depression Screening Interpretation: Negative Thrive Assessment: Date of Thrive Assessment Date Thrive assessed 09/18/24 09/18/24 11:10 Coding Level of Care Code New Pt Level 4 (41667) Complex EM visit Add On G2211 Diagnoses Primary hypertension I10 Hypertension type: primary hypertension Hyperlipidemia, unspecified hyperlipidemia type E78.5 Hyperlipidemia type: unspecified Elevated glucose R73.09 History of CVA (cerebrovascular accident) Z86.73 Additional Codes PHQ-9 - 88912 - PHQ-9 Billing: Yes ([id number]) Assessment & Plan Assessment & Plan (1) Hypertension: Code(s): I10 - Essential (primary) hypertension Category: Medical Qualifiers: Hypertension type: primary hypertension Qualified Code(s): I10 - Essential (primary) hypertension (2) Hyperlipidemia: Code(s): E78.5 - Hyperlipidemia, unspecified Category: Medical Qualifiers: Hyperlipidemia type: unspecified Qualified Code(s): E78.5 - Hyperlipidemia, unspecified (3) Elevated glucose: Code(s): R73.09 - Other abnormal glucose Category: Medical (4) History of CVA (cerebrovascular accident): Code(s): Z86.73 - Personal history of transient ischemic attack (TIA), and cerebral infarction without residual deficits Category: Medical Plan 64yo to establish care past medical, surgical, social reviewed History of CVA, htn-BP is well controlled Labs ordered. Orders: Orders Lipid Panel 09/18/24 E78.5 - Hyperlipidemia, unspecified, G81.10 - Spastic hemiplegia affecting unspecified side, I10 - Essential (primary) hypertension, R73.09 - Other abnormal glucose, Z86.73 - Personal history of transient ischemic attack (TIA), and cerebral infarction without residual deficits Hemoglobin A1c 09/18/24 E78.5 - Hyperlipidemia, unspecified, G81.10 - Spastic hemiplegia affecting unspecified side, I10 - Essential (primary) hypertension, R73.09 - Other abnormal glucose, Z86.73 - Personal history of transient ischemic attack (TIA), and cerebral infarction without residual deficits Prostate Specific Antigen 09/18/24 E78.5 - Hyperlipidemia, unspecified, G81.10 - Spastic hemiplegia affecting unspecified side, I10 - Essential (primary) hypertension, R73.09 - Other abnormal glucose, Z86.73 - Personal history of transient ischemic attack (TIA), and cerebral infarction without residual deficits Comprehensive Met. Panel 09/18/24 E78.5 - Hyperlipidemia, unspecified, G81.10 - Spastic hemiplegia affecting unspecified side, I10 - Essential (primary) hypertension, R73.09 - Other abnormal glucose, Z86.73 - Personal history of transient ischemic attack (TIA), and cerebral infarction without residual deficits Complete Blood Count Auto Diff 09/18/24 E78.5 - Hyperlipidemia, unspecified, G81.10 - Spastic hemiplegia affecting unspecified side, I10 - Essential (primary) hypertension, R73.09 - Other abnormal glucose, Z86.73 - Personal history of transient ischemic attack (TIA), and cerebral infarction without residual deficits
[2024-09-18 11:43] VITALS: BP 136/80; PULSE 80; TEMP 36.6; O2SAT 95
--- OUTSIDE RECORDS SUMMARY | 2024-09-18 13:08 | XMS_ITS ---
Author Organization [facility] Address [address] [place] [phone] Care Team Providers Care Construction Area Manager Name Role Phone Claudy Logan MD Primary Care Provider Kaden Starr Jr Allergies No Known Allergies REASON FOR VISIT [...] Problem Status W/U Status Risk Notes Problem [id number] Encounter for long-term (current) use of aspirin (Z79.82) Active confirmed Problem 344330210 Colon cancer screening (Z12.11) Active confirmed Vital Signs Temperature 97.8 degrees Fahrenheit 08/26/19 25 Blood pressure systolic 001 mm Hg 08/26/19 25 Blood pressure diastolic 01 mm Hg 025 Height 73 in 08/25/2024 Weight 261 lbs 08/25/2024 BMI 34.43 kg/m2 08/25/2024 Encounters Encounter Location Date Provider Diagnosis [facility] [address] [place] [phone] 08/25/2024 Kaden Calderon Jr Colon cancer screening [...] Provider Name:Kaden cabrera Jr, 2024 10:10:00 AM, [address] [place] [address] , [place], [place], [phone], Progress Notes * TARAS RICHARDSON IIIDOB: (63 yo M)Acc No.[id number]:08/25/2024 Progress Notes Patient:?TARAS RICHARDSON III Provider:?Kaden Calderon MD :1960???Age:63 Y???Sex:Male Gurinder e:08/25/2024 Address:[address] [place], [place] [phone] Pcp:Claudy Logan MD Subjective: * Chief Complaints: [...] MD Date:?0 08/25/2024 Generated for Javier kahn/Marylou/eTransmitting on:?09/18/2024 01:08 PM EDT History and Physical Notes * [...]
--- OUTSIDE RECORDS SUMMARY | 2024-09-18 13:09 | XMS_ITS | Patient Health Record ---
Author Organization [facility] Address [address] [place] [phone] Care Team Providers Care Resident Care Coordinator Name Role Phone Claudy Logan MD Primary [...] Problem Status W/U Status Risk Notes Problem [id number] Colon cancer screening (Z12.11) Active confirmed Problem [id number] Encounter for long-term (current) use of aspirin (Z79.82) Active confirmed Vital Signs Temperature 97.8 degrees Fahrenheit 08/25/2024 Blood pressure diastolic 01 mm Hg 08/25/2024 Height 73 in 08/25/2024 Blood pressure systolic 001 mm Hg 08/25/2024 Weight 261 lbs 08/25/2024 BMI 34.43 kg/m2 08/25/2024 Encounters Encounter Location Date Provider Diagnosis [facility] [address] [place] [phone] 08/25/2024 Kaden Calderon Jr Colon cancer screening Z12.11 and Encounter for long-term (current) use of aspirin Z79.82 [facility] [address] [place] [address] 04/30/2024 Kaden Calderon Jr Assessments Encounter Date [...] Name:Kaden cabrera Jr, 2024 10:10:00 AM, [address] [facility] , [place], [place], [phone], Insurance Providers Payer Name Payer Address Payer Phone Subscriber Number Group Number Insured Name Patient Relationship to Insured Coverage Start Date Coverage End Date [facility] [address] [place], [place] [id number] [phone] [id number] PRAVEEN RICHARDSON Self - patient is the insured Medical (General) History Medical History History ICD Code CVA with left-sided weakness Hypertension Surgical History Surgery Date(Month/Year) baclofen pump 2024
--- OUTSIDE RECORDS SUMMARY | 2024-09-18 13:09 | XMS_ITS ---
Author Organization [facility] Address [address] [place] [phone] Care Team Providers Care Welt Trimming Machine Operator Name Role Phone Claudy Logan MD Primary Care Provider Kaden Starr Jr [phone] REASON FOR VISIT r/s sunday the to august. Encounters Encounter Location Date Provider Diagnosis [facility] [address] [facility] [address] [place] [phone] 04/30/2024 Kaden Calderon Jr Plan Of Treatment Next Appt Details Provider Name:Kaden cabrera Jr, 2024 10:10:00 AM, [address] [place] [address] , [place], [place], [phone], Progress Notes * PRAVEEN RICHARDSONDOB:[birth year] (63 yo M)Acc No.[id number]:04/30/2024 Patient:?PRAVEEN RICHARDSON :1960???Age:63 Y???Sex:Male Address:[address] [facility], [address] * true * Date:? Generated for Javier kahn/Marylou/eTransmitting on:?09/18/2024 01:09 PM EDT
--- OUTSIDE RECORDS SUMMARY | 2024-09-18 13:09 | XMS_ITS ---
Author Organization [facility] Address [address] [address] Care Team Providers Care Site Medical Director Name Role Phone Claudy Logan MD Primary Care Provider UnavailKaden Persaud Jr REASON FOR VISIT Patient presents today for a SCREENING COLON Encounters Encounter Location Date Provider Diagnosis [facility] [address] [address] 05/02/2024 Kaden Calderon Jr Plan Of Treatment Next Appt Details Provider Name:Kaden cabrera Jr, 2024 10:10:00 AM, [address] [place] [address] , [place], [place], [phone], Progress Notes * PRAVEEN RICHARDSON IIIDOB: (63 yo M)Acc No.[id number]:05/02/2024 Progress Notes Patient:?PRAVEEN RICHARDSON III Provider:?Kaden Calderon MD :1960???Age:63 Y???Sex:Male Gurinder e:05/02/2024 Address:[address] [place] [address] [phone] Pcp:Claudy Logan MD Subjective: * Chief [...] MD Date:?1 07/03/2023 Generated for Javier kahn/Marylou/Carolin on:?09/18/2024 01:08 PM EDT
== END 2024-09-18 13:02 | disposition home or self-care (01) ==
LOC: HO.HMCHD 11:36
PROVIDERS: PCP Internal Medicine; Visit Provider Internal Medicine
DX: I10 Essential (primary) hypertension (principal); E78.5 Hyperlipidemia, unspecified; R73.09 Other abnormal glucose; Z86.73 Personal history of transient ischemic attack (TIA), and cerebral infarction without residual deficits

== ENCOUNTER → 2024-09-18 11:36 | Outpatient (BNVA) | payer BC, SELFPAY | PROVIDERS: PCP Internal Medicine; Visit Provider Internal Medicine | DX: I10 Essential (primary) hypertension (principal); E78.5 Hyperlipidemia, unspecified; R73.09 Other abnormal glucose; K21.9 Gastro-esophageal reflux disease without esophagitis; Z86.73 Personal history of transient ischemic attack (TIA), and cerebral infarction without residual deficits; Z79.899 Other long term (current) drug therapy | CPT/HCPCS: 96127 ==

== ENCOUNTER 2024-09-19 08:36 | Day surgery (SDC) | payer BC, SELFPAY ==
--- OUTSIDE RECORDS SUMMARY | 2024-09-03 16:31 | XMS_ITS ---
Author Organization [facility] Address [address] [address] Care Team Providers Care Logging Superintendent Name Role Phone Claudy Logan MD Primary Care Provider UnavailKaden Persaud Jr REASON FOR VISIT Patient presents today for a SCREENING COLON Encounters Encounter Location Date Provider Diagnosis [facility] [address] [phone] 05/02/2024 Kaden Calderon Jr Plan Of Treatment Next Appt Details Provider Name:Kaden cabrera Jr, 2024 10:10:00 AM, [address] [place] [address] , [place], [place], [phone], Progress Notes * PRAVEEN RICHARDSON IIIDOB: (63 yo M)Acc No.[id number]:05/02/2024 Progress Notes Patient:?PRAVEEN RICHARDSON III Provider:?Kaden Calderon MD :1960???Age:63 Y???Sex:Male Gurinder e:05/02/2024 Address:[address] [place] [address] [phone] Pcp:Claudy Logan MD Subjective: * Chief Complaints: * ???1. Patient presents today for a SCREENING COLON. * Medical History:? Objective: * Vitals:? Assessment: Plan: * Treatment: * * The named appointment provid er may or may not be the originator of this progress note, and it is not deemed complete until electronically signed by the appointment provider. Sign off status: Pending * Provider:?Kaden Calderon MD Date:?1 07/03/2023 Generated for Javier kahn/Marylou/Carolin on:?09/03/2024 04:31 PM EDT
--- OUTSIDE RECORDS SUMMARY | 2024-09-03 16:31 | XMS_ITS | Patient Health Record ---
Author Organization [facility] Address [address] [place] [phone] Care Team Providers Care Senior Programmer Name Role Phone Claudy Logan MD Primary Care Provider Kaden Starr Jr Allergies No Known Allergies Reason For Referral No Information Medications Medication SIG (Take, Route, Fr equency, Duration) Notes Start Date End Date Status Aspirin 81 81 MG 1 tablet Orally Once a day Active Lisinopril 10 MG 1 tablet Orally Once a day Active Immunizations Vaccine Route Administration Date Status Comme nts Influenza Unknown 03/04/2024 Administered Social History Tobacco Use: Social History Observation Description Date Details (start date - stop date) Never Smoker NA - NA Tobacco Control (Standard) Question Answer Notes Tobacco use: Nonsmoker AUDIT-C (Standard) Question Answer Notes Did you have a drink containing alcohol in the p ast year? No Points 0 Interpretation Negative Problems Problem Type SNOMED Code ICD Code Onset Dates Problem Status W/U Status Risk Notes Problem [id number] Colon cancer screening (Z12.11) Active confirmed Problem 304553498238505 Encounter for long-term (current) use of aspirin (Z79.82) Active confirmed Vital Signs Temperature 97.8 degrees Fahrenheit 08/25/2024 Blood pressure diastolic 01 mm Hg 08/25/2024 Height 73 in 08/25/2024 Blood pressure systolic 001 mm Hg 08/25/2024 Weight 261 lbs 08/25/2024 BMI 34.43 kg/m2 08/25/2024 Encounters Encounter Location Date Provider Diagnosis [facility] [address] [place] [phone] 08/25/2024 Kaden Calderon Jr Colon cancer screening Z12.11 and Encounter for long-term (current) use of aspirin Z79.82 [facility] [address] [facility] [address] [place] [address] 04/30/2024 Kaden Calderon Jr Assessments Encounter Date Diagnosis (ICD Code) Assessment Notes Treatment Notes Treatment Clinical Notes Section Notes 08/25/2024 Colon cancer screening (ICD-10 - Z12.11) We discussed colonoscopy today. We discussed risks and benefits of the procedure today. He understands these and agrees to proceed. He is advised to stop aspirin 1 week before the procedure. 08/25/2024 Encounter for long-term (current) use of aspirin (ICD-10 - Z79.82) We discussed colonoscopy today. We discussed risks and benefits of the procedure today. He understands these and agrees to proceed. He is advised to stop aspirin 1 week before the procedure. Plan Of Treatment Future Test Test Name Order Date COLONOSCOPY 08/25/2024 Next Appt Details Provider Name:Kaden cabrera Jr, 2024 10:10:00 AM, [address] [facility] , [place], [place], [phone], Insurance Providers Payer Name Payer Address Payer Phone Subscriber Number Group Number Insured Name Patient Relationship to Insured Coverage Start Date Coverage End Date [facility] [address] [place], [place] [id number] PRAVEEN RICHARDSON Self - patient is the insured Medical (General) History Medical History History ICD Code CVA with left-sided weakness Hypertension Surgical History Surgery Date(Month/Year) baclofen pump 2024
--- OUTSIDE RECORDS SUMMARY | 2024-09-03 16:31 | XMS_ITS ---
Author Organization [facility] Address [address] [place] [phone] Care Team Providers Care Oracle Database Administrator Name Role Phone Claudy Logan MD Primary Care Provider Kaden Starr Jr [phone] Allergies No Known Allergies REASON FOR VISIT Patient presents today for a colon screening Medications Medication SIG (Take, Route, Fr equency, Duration) Notes Start Date End Date Status Aspirin 81 81 MG 1 tablet Orally Once a day Active Lisinopril 10 MG 1 tablet Orally Once a day Active Social History Tobacco Use: Social History Observation [...] Problem Status W/U Status Risk Notes Problem [id number] Encounter for long-term (current) use of aspirin (Z79.82) Active confirmed Problem [id number] Colon cancer screening (Z12.11) Active confirmed Vital Signs Temperature 97.8 degrees Fahrenheit 08/26/19 25 Blood pressure systolic 001 mm Hg 08/26/19 25 Blood pressure diastolic 01 mm Hg 025 Height 73 in 08/25/2024 Weight 261 lbs 08/25/2024 BMI 34.43 kg/m2 08/25/2024 Encounters Encounter Location Date Provider Diagnosis [facility] [address] [place] [phone] 08/25/2024 Kaden Calderon Jr Colon cancer screening Z12.11 and Encounter for long-term (current) use of aspirin Z79.82 Assessments Encounter Date Diagnosis (ICD Code) Assessment [...] Order Date COLONOSCOPY 08/25/2024 Next Appt Details Follow Up: 1 Year, Reason: Provider Name:Kaden cabrera Jr, 2024 10:10:00 AM, [address] [place] [address] , [place], [place], [phone], Progress Notes * TARAS RICHARDSON IIIDOB: (63 yo M)Acc No.[id number]:08/25/2024 Progress Notes Patient:?TARAS RICHARDSON III Provider:?Kaden Calderon MD :1960???Age:63 Y???Sex:Male Gurinder e:08/25/2024 Address:[address] [place], [place] [phone] Pcp:Claudy Logan MD Subjective: * Chief Complaints: * ???1. Patient presents today for a colon screening. * HPI: ???New symptom(s):? Taras is a pleasant 63-year-old man seen today in consultation. He has no complaints of rectal bleeding or change in his bowel habits. * ROS:?General/Constitutional:?Change in appetite?denies.?Fatigue?denies.?ENT:?Patient denies?difficulty swallowing.?Respiratory:?Patient denies?shortness of breath.?Cardiovascular:?Patient denies?chest pain.?Gastrointestinal:?Comments?See HPI for details.?Genitourinary:?Difficulty urinating?denies.?Incontinence?denies.?Musculoskeletal:?Patient denies?muscle aches.?Skin:?Patient denies?pruritis.?Neurologic:?Patient denies?low back pain.?Psychiatric:?Patient denies?mental or physical abuse.? * Medical History:?CVA with le ft-sided weakness, Hypertension. * Surgical History:?baclofen p ump 2024 . * Family History:?Father: dece ased.?Mother: .? No family history of colon cancer or liver cancer. * Social History:?Tobacco Use:?Tobacco Control (Standard)?Tobacco use:?Nonsmoker.?Miscellaneous:?Marital status: . Occupation: retired. ???Drug/Alcohol:?AUDIT-C (Standard)?Did you have a drink containing alcohol in the past year??No,?Points?0,?Interpretation?Negative.? * Medications:?Taking Aspirin 81 81 MG Tablet Delayed Release 1 tablet Orally Once a day , Taking Lisinopril 10 MG Tablet 1 tablet Orally Once a day , Medication List reviewed and reconciled with the patient * Allergies:?N.K.D.A. Objective: * Vitals:?Wt: 261 lbs, Ht: 73 in, BMI: 34.43 Index, BP: 001/01 mm Hg, Temp: 97.8, Ht-cm: 185.42, Wt-k.39. * Examination: ???General Examination: ?GENERAL APPEARANCE:?in no acute distress.?HEAD:?normocephalic.?EYES:?sclera non-icteric.?ORAL CAVITY:?mucosa moist.?NECK/THYROID:?no lymphadenopathy.?SKIN:?anicteric.?HEART:?S1, S2 normal, no murmurs.?LUNGS:?clear to auscultation bilaterally.?CHEST:?normal shape and expansion.?ABDOMEN:?soft, nontender, nondistended, bowel sounds present, no organomegaly .?EXTREMITIES:?no clubbing, cyanosis, or edema.?PSYCH:?cognitive function intact.?He ambulates with a cane and exhibits left-sided weakness. Assessment: * Assessment: 1.?Encounter for long-term ( current) use of aspirin - Z79.82 (Primary)???2.?Colon cancer screening - Z12.11??? We discussed colonoscopy tod dario. We discussed risks and benefits of the procedure today. He understands these and agrees to proceed. He is advised to stop aspirin 1 week before the procedure. Plan: * Treatment: * Procedure Codes:?3017F COLOR ECTAL CA SCREEN DOC REV, 1036F TOBACCO NON-USER, G9744 PATIENT NOT ELIG D/T ACTIVE DX HTN * Preventive Medicine:? ??Counseling:?Care goal follow-up plan:?Above Normal BMI Follow-up?Dietary management education, guidance, and counseling,?BMI management provided?Yes.? ??Screenings:?Fall Risk Screening?Fall Risk Assessment:?No falls in the past year,?Screening:?No falls in the past year,?Assessment:?Not performed, no reason specified,?Plan of Care:?Not documented, no reason specified.? * Follow Up:?1 Year * * Sign off status: Completed true * Provider:?Kaden Calderon MD Date:?0 08/25/2024 Generated for Javier kahn/Marylou/eTransmitting on:?09/03/2024 04:31 PM EDT History and Physical Notes * HPI (History of Present Illness) Category Sub-Category Detail Notes Category Not es New symptom(s) Taras is a pleasant 63-year-old man seen today in consultation. He has no complaints of rectal bleeding or change in his bowel habits. Examination Category Sub-Category Detail Notes Category Not es General Examination GENERAL APPEARANCE: in no acute di stress He ambulates with a cane and exhibits left-sided weakness HEAD: normocephalic EYES: sclera non-icteric NECK/THYROID: no lymphadenopathy HEART: S1, S2 normal, no mu rmurs CHEST: normal shape and exp ansion LUNGS: clear to auscultatio n bilaterally ABDOMEN: soft, nontender, non distended, bowel sounds present, no organomegaly SKIN: anicteric EXTREMITIES: no clubbing, cyanosi s, or edema PSYCH: cognitive function i ntact ORAL CAVITY: mucosa moist
--- OUTSIDE RECORDS SUMMARY | 2024-09-03 16:32 | XMS_ITS ---
Author Organization [facility] Address [address] [place] [phone] Care Team Providers Care Search Director Name Role Phone Claudy Logan MD Primary Care Provider Kaden Starr Jr [phone] REASON FOR VISIT r/s sunday the to august. Encounters Encounter Location Date Provider Diagnosis [facility] [address] [facility] [address] [place] [phone] 04/30/2024 Kaden Calderon Jr Plan Of Treatment Next Appt Details Provider Name:Kaden cabrera Jr, 2024 10:10:00 AM, [address] [place] [address] , [place], [place], [phone], Progress Notes * PRAVEEN RICHARDSONDOB:[birth year] (63 yo M)Acc No.[id number]:04/30/2024 Patient:?PRAVEEN RICHARDSON :1960???Age:63 Y???Sex:Male [address] [place] [place], [address] * true * Date:? Generated for Javier kahn/Marylou/eTransmitting on:?09/03/2024 04:31 PM EDT
--- NOTE | 2024-09-17 14:13 | HO.ANESPROP2 ---
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 Father No problems noted. Surgical History Surgical History History of surgery on right wrist (~1984) History of surgery (08/2024) Social History Social History Household Members: Spouse Housing: House Are you a primary post acute care registered nurse to a significant other at home: No Patient Tobacco Use Status: Never used Tobacco e-Cigarette/Vaping Use: Never Used Use of substances other than those prescribed or required for medical reasons: No Have you been hit, kicked, punched, or otherwise hurt by someone within the past year? If so, by whom?: No Are you DNR?: No Advance Directives: No Advance Directives Information Provided: Yes Advance Directives on File: No Poor oral hygiene: No service: No Current occupational status: retired Cognitive needs: No Hearing needs: No Vision needs: Yes (rx glasses) Meds Allergies Allergy/AdvReac Type Severity Reaction Status Date / Time No Known Allergies Allergy Verified 09/19/24 09:08 Home Medications ?Medication ?Instructions ?Recorded ?Confirmed ?Last Taken ?Type aspirin 81 mg chewable tablet 81 mg PO DAILY 09/17/24 09/19/24 09/10/24 History fluoxetine 20 mg capsule 20 mg PO DAILY 09/17/24 09/19/24 Unknown History lisinopril 10 mg tablet 10 mg PO DAILY 09/17/24 09/19/24 09/18/24 History omeprazole 20 mg capsule,delayed 20 mg PO DAILY PRN Gastric Reflux 09/17/24 09/19/24 Unknown History release Assessment and Plan Assessment Anesthesia Assessment: Chart Reviewed Documented by User: Yessica Barrientos MD 09/19/24 10:31 [facility] Past Medical History Medical History Presence of intrathecal baclofen pump Spasm 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 Father No problems noted. Family history of problems with anesthesia: No Surgical History Surgical History History of surgery on right wrist (~1984) History of surgery (08/2024) History of Problems with Anesthesia: No Social History Social History Household Members: Spouse Housing: House Are you a primary post acute care registered nurse to a significant other at home: No Patient Tobacco Use Status: Never used Tobacco e-Cigarette/Vaping Use: Never Used Use of substances other than those prescribed or required for medical reasons: No Have you been hit, kicked, punched, or otherwise hurt by someone within the past year? If so, by whom?: No Are you DNR?: No Advance Directives: No Advance Directives Information Provided: Yes Advance Directives on File: No Poor oral hygiene: No service: No Current occupational status: retired Cognitive needs: No Hearing needs: No Vision needs: Yes (rx glasses) Meds Allergies Allergy/AdvReac Type Severity Reaction Status Date / Time No Known Allergies Allergy Verified 09/19/24 09:08 Home Medications ?Medication ?Instructions ?Recorded ?Confirmed ?Last Taken ?Type aspirin 81 mg chewable tablet 81 mg PO DAILY 09/17/24 09/19/24 09/10/24 History fluoxetine 20 mg capsule 20 mg PO DAILY 09/17/24 09/19/24 Unknown History lisinopril 10 mg tablet 10 mg PO DAILY 09/17/24 09/19/24 09/18/24 History omeprazole 20 mg capsule,delayed 20 mg PO DAILY PRN Gastric Reflux 09/17/24 09/19/24 Unknown History release Exam Height,Weight and Vital Signs: Height 6 ft Weight 118.9 kg Vital Signs Temp Pulse Resp BP Pulse Ox O2 Del Method 09/19/24 09:10 98.1 F 73 16 142/82 H 94 Room Air Airway Mallampati Class: III TM Dist: >3cm Neck ROM: Full Loose/Missing/Broken Teeth: Yes (Missing molars. Denies broken or loose teeth ) Heart: RRR Lungs: CTAB Assessment and Plan Assessment Anesthesia Assessment: Anesthesia Plan Discussed and Chart Reviewed Final Anesthetic Review Family History of Problems with Anesthesia: No History of Problems with Anesthesia: No NPO: Yes ASA Class: III Final Preanesthetic Review: No Changes in Pt Med Stat, Meds/Allgs Chart Reviewed, Consent Obtained/Reviewed and Anes Risks/Benef Reviewed Patient Risk: Intermediate Procedure Risk: Low Assessment/Block/Sedation in SS: Assess/Block/Sedation-SS Anesthetic Plan Anesthetic Plan: TIVA Disposition: Standard PACU
[2024-09-17 15:35] VITALS: BMI 34.4
[2024-09-17 15:56] VITALS: BMI 35.3
[2024-09-19 09:10] VITALS: BP 142/82; PULSE 73; RESP 16; TEMP 36.7; O2SAT 94; BMI 35.5
[2024-09-19] MEDS: Lactated Ringers 1,000 ML 100 ML IVCONT (09:37)
--- NOTE | 2024-09-19 10:01 | MHC.SHP ---
Pre-Procedural Eval Section A - 24 Hr Update-Section A only Date of Service: 09/19/24 The patient is an INPATIENT: No Changes since office visit: No Cold of Flu in the past 2 weeks, No New Medical Problems, No Changes in Medication and No Patient answered all questions The patient has been examined within 24 hours of the surgical procedure. The History & Physical has been completed within 30 days and I have reviewed it.: Yes Section B - Complete if H&P > 30 days Chief Complaint: Encounter for screening for malignant neoplasm of Allergies: Allergies Allergy/AdvReac Type Severity Reaction Status Date / Time No Known Allergies Allergy Verified 09/19/24 09:08 Plan I have reviewed the history and physical and performed a pertinent physical examination on my patient. No changes have occurred unless specified. Time Spent With Patient Time: Total time managing care of this patient today ____ minutes.
[2024-09-19 10:53] VITALS: BP 123/80; PULSE 77; RESP 15; TEMP 36.4; O2SAT 94
--- NOTE | 2024-09-19 11:07 | OP_ITS ---
DATE OF SERVICE: 09/19/2024 SURGEON: Kaden Calderon MD INDICATIONS: Colon cancer screening. PREOPERATIVE DIAGNOSIS: POSTOPERATIVE DIAGNOSIS: PROCEDURE PERFORMED: Colonoscopy to the terminal ileum. ESTIMATED BLOOD LOSS: COMPLICATIONS: ANESTHESIA: Monitored anesthesia care. ASSISTANTS: SPECIMENS: DESCRIPTION OF PROCEDURE: A history and physical was performed. The risks and benefits of the procedure were explained to the patient and informed consent was obtained. The patient was placed in the left lateral decubitus position. A digital rectal exam was performed and was found to be normal. The Olympus pediatric video colonoscope was introduced into the rectum and advanced to the cecum. The cecum was identified by transillumination, palpation, and identification of the ileocecal valve. Examination was performed and the scope was removed. He tolerated the procedure well and was returned to recovery area in stable condition. FINDINGS: The terminal ileum was examined and appeared normal. The visualized colonic mucosa was normal. The quality of the prep was good. No polyps were identified. There was mild sigmoid diverticulosis. Retroflexed examination showed small internal hemorrhoids. IMPRESSION: Normal colonoscopy. RECOMMENDATIONS: 1. Follow up as needed. 2. Repeat colonoscopy is recommended in 10 years for average-risk individuals. MD TO Og/ROLO / [phone]
[2024-09-19 11:28] VITALS: BP 118/83; PULSE 78; RESP 17; TEMP 36.4; O2SAT 95
== END 2024-09-19 12:00 | disposition home or self-care (01) ==
PROVIDERS: PCP Internal Medicine; Visit Provider Internal Medicine Gastroenterology
PROC: 0DJD8ZZ Inspection of Lower Intestinal Tract, Via Natural or Artificial Opening Endoscopic (ICD-10-PCS; CPT 45378; principal; 2024-09-19 10:10)
DX: Z12.11 Encounter for screening for malignant neoplasm of colon (principal); K57.30 Diverticulosis of large intestine without perforation or abscess without bleeding; K64.8 Other hemorrhoids; I69.354 Hemiplegia and hemiparesis following cerebral infarction affecting left non-dominant side; I10 Essential (primary) hypertension; Z79.82 Long term (current) use of aspirin; Z79.899 Other long term (current) drug therapy; Z97.8 Presence of other specified devices; Z99.89 Dependence on other enabling machines and devices
CPT/HCPCS: 45378; J2003; J2704

== ENCOUNTER 2025-01-15 10:55 | Outpatient (AMB) | payer BC, SELFPAY ==
--- OUTSIDE RECORDS SUMMARY | 2024-05-02 05:20 | XMS_ITS ---
Author Organization [facility] Address [address] [place] [phone] Care Team Providers Care Ux Consultant Name Role Phone Desmond (RETIRED) Claudy LUBIN Primary Care Provide r Kaden Gerardo Jr REASON FOR VISIT Patient presents today for a SCREENING COLON Encounters Encounter Location Date Provider Diagnosis [facility] [address] [facility] [address] [place] [phone] 05/02/2024 Kaden Calderon Jr Plan Of Treatment No Information Progress Notes * RICHARDSON, PRAVEEN Padilla IIIDOB: (64 yo M)Acc No.[id number]:05/02/2024 Progress Notes Patient: PRAVEEN FERREIRA J III Provider: Cher Calderon MD :1960 A ge:63 Y S ex:Male Date:05/02/2024 Address:[address] [place], [place] [phone] Pcp:Claudy Logan (RETIRED )MD Subjective: * Chief Complaints: * 1 . Patient presents today for a SCREENING COLON. * Medical History: Objective: * Vitals: Assessment: Plan: * Treatment: * * The named appointment provid er may or may not be the originator of this progress note, and it is not deemed complete until electronically signed by the appointment provider. Sign off status: Pending * Provider: Cher Calderon MD Date: 1 07/03/2023 Generated for Javier kahn/Marylou/Gastonsmitting on: 0 01/15/2025 12:31 PM EDT
--- OUTSIDE RECORDS SUMMARY | 2024-09-19 06:10 | XMS_ITS ---
Author Organization [facility] Address [address] [place] [phone] Care Team Providers Care Skills Trainer Name Role Phone Desmond (RETIRED) Claudy LUBIN Primary Care Provide r Kaden Gerardo Jr REASON FOR VISIT screening Encounters Encounter Location Date Provider Diagnosis [facility] Out[facility] [address] [place] [phone] 2024 Kaden Calderon Jr Colon cancer screening Z12.11 Assessments Encounter Date Diagnosis (ICD Code) Assessment Notes Treatment Notes Treatment Clinical Notes Section Notes 2024 Colon cancer screening (ICD-10 - Z12.11) Plan Of Treatment No Information Progress Notes * PRAVEEN RICHARDSON IIIDOB: (64 yo M)Acc No.[id number]:2024 COLON WITH MAC Patient: PRAVEEN FERREIRA III Provider: Cher Cadleron MD :1960 A ge:64 Y S ex:Male Date:2024 Address:[address] [place] [address] [place], [place]-[phone] Pcp:Claudy Logan (RETIRED )MD Subjective: * Chief Complaints: * 1 . Screening. * Medical History: Objective: * Vitals: Assessment: * Assessment: 1. C olon cancer screening - Z12.11 (Primary) Plan: * Treatment: * Procedure Codes: 4 5378 DIAGNOSTIC COLONOSCOPY * * The named appointment provid er may or may not be the originator of this progress note, and it is not deemed complete until electronically signed by the appointment provider. Sign off status: Pending * Provider: Cher Calderon MD Date: 0 2024 Generated for Javier kahn/Marylou/Carolin on: 0 01/15/2025 12:31 PM EDT
--- NOTE | 2025-01-15 10:59 | MHC.PC.OV ---
Vital Signs 01/15/25 11:22 Height 6 ft Weight 258 lb BMI 35.0 BP 142/82 H Blood Pressure Location Rt brachial Position Sitting Respiration 17 Pulse 76 Pulse Source Pulse Oximeter Temp 98.3 F Temp Source Temporal Artery Scan Pulse Oximetry (%) 93 Oxygen Delivery Method Room Air Intake Visit Reasons: Routine / dr Logan Exercise Specialist Required: No Accompanied by: Self / Same As Patient Allergies No Known Allergies Allergy (Verified 01/15/25 10:59) Tobacco use date assessed: 09/18/24 Fall risk assessment: No Falls in past year Last assessed Fall Risk: 01/15/25 Dental Screening Dental Screen Date: 09/18/24 HPI HPI Comments History of Present Illness Details The patient is a 64 year old male presenting with the purpose of a follow-up appointment. He has a history of essential hypertension, hyperlipidemia, and a stroke occurring in 2018, which resulted in residual weakness on the left side. The patient reports not receiving any treatment for his hyperlipidemia in the past, citing elevated liver enzymes as a concern from ten years ago. The patient maintains activity by riding an exercise bike for an hour and practicing yoga for half an hour daily. He was previously very active, playing hockey and running. He desires to regain his ability to run and is planning a trip to [place] [employer] in October, for which he wants to improve his walking ability. The patient also reported having every experimental treatment for his post-stroke weakness, including electric therapy, none of which were successful. He expresses interest in resuming physical therapy. No headaches, chest pain, joint pains, nausea, or vomiting were reported during the conversation. Vision changes, shortness of breath, or any new weakness were denied apart from his chronic left-sided weakness. He does have a history of elevated blood pressure, recorded as 142. Medical History: - Stroke with residual left-sided weakness (2018) - Hyperlipidemia - Essential Hypertension - Major Depressive Disorder - Elevated liver enzymes Surgical History: - Intrathecal Baclofen Pump placement Medications: - Aspirin - Fluoxetine - Lisinopril - Omeprazole Social: - The patient exercises daily, including an hour on a stationary bike and half an hour of yoga - Reportedly struggled with finding handicap parking, indicating mobility limitations - Formerly very active, played hockey, participated in running events [facility] Medical History (Updated 01/15/25 @ 11:47 by Carlitos Pandey MD) Presence of intrathecal baclofen pump Spasm 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 Father No problems noted. Social History Household Members: Spouse Housing: House Are you a primary coronary care unit nurse to a significant other at home: No Patient Tobacco Use Status: Never used Tobacco e-Cigarette/Vaping Use: Never Used service: No Current occupational status: retired Cognitive needs: No Hearing needs: No Vision needs: Yes (rx glasses) Questionnaire Thrive Questionnaire Date Thrive assessed: 09/18/24 AUDIT C Alcohol Use Questionnaire (AUDIT-C) 1. How often do you have a drink containing alcohol?: Never 3. How often do you have six or more drinks on one occasion?: Never Total Score: 0 MAHOGANY-7 AMB Questionnaire MAHOGANY-7 Date MAHOGANY - 7 assessed: 09/18/24 Source: Developed by Drs. Jos Tang, Razia Harper, Wilman Figueroa and colleagues, with an educational gabi from [employer]. Review of Systems Const Details: - Cardiovascular: Reports no chest pain - Respiratory: Denies shortness of breath - Neurological: Reports chronic left-sided weakness; denies headaches and new weaknesses - Gastrointestinal: Denies nausea, vomiting, abdominal pain; reports normal bowel movements - Musculoskeletal: Denies joint pains All systems reviewed & are unremarkable except as noted in HPI and below Physical exam (Primary Care) Vital Signs: Last Vital Signs Temp 98.3 F 01/15/25 11:22 Pulse 76 01/15/25 11:22 Resp 17 01/15/25 11:22 BP 142/82 H 01/15/25 11:22 Pulse Ox 93 01/15/25 11:22 Oxygen Delivery Method Room Air 01/15/25 11:22 BMI result Body Mass Index 35.0 Tobacco/Smoking Status: Tobacco use Status Tobacco use date assessed 09/18/24 01/15/25 11:00 Patient Tobacco Use Status Never used Tobacco 01/15/25 11:00 e-Cigarette/Vaping Use Never Used 01/15/25 11:00 Thrive Assessment: Date of Thrive Assessment Date Thrive assessed 09/18/24 01/15/25 11:00 Const Other: General: +Alert and oriented, Well nourished, No acute distress. Eye: Pupils are equal, round and reactive to light, Intact accommodation, Extraocular movements are intact, Normal conjunctiva, Vision unchanged. HENT: Normocephalic, Atraumatic, Tympanic membranes are clear, Normal hearing, Oral mucosa is moist, No pharyngeal erythema, Ear canals patent. Respiratory: Lungs CTA bilaterally, No wheeze, Respirations are non-labored. Cardiovascular: Regular rate, Regular rhythm, S1 auscultated, S2 auscultated, No murmur, Good pulses equal in all extremities, Normal peripheral perfusion, No edema. Gastrointestinal: Soft, Non-tender, Non-distended, Normal bowel sounds, No organomegaly. Musculoskeletal: Normal range of motion, Normal strength on the right side, 4/5 strength on the left side, No tenderness, No deformity, Contractures present on the left side, Normal gait, Swelling in the left leg. Integumentary: Warm, Dry, [place], Intact. Neurologic: Alert, Oriented, Normal sensory, Normal motor function on the right side, Weakness on the left side, No focal defects, Cranial Nerves II-XII are grossly intact, Normal deep tendon reflexes. Psychiatric: Cooperative, Appropriate mood & affect, Normal judgment. Coding Level of Care Code Est Pt Level 4 (25856) Complex EM visit Add On G2211 Diagnoses Primary hypertension I10 Hypertension type: primary hypertension Hyperlipidemia, unspecified hyperlipidemia type E78.5 Hyperlipidemia type: unspecified History of CVA (cerebrovascular accident) Z86.73 Presence of intrathecal baclofen pump Z97.8 MDD (major depressive disorder) F32.9 Assessment & Plan Assessment & Plan (1) Hypertension: Comment: - Blood pressure was slightly elevated at 142, likely due to patient's current stress and activity level. - Encouraged dietary adjustments, particularly reducing salt intake to aid blood pressure control. - Anticipated follow-up to assess the effectiveness of these lifestyle changes. Code(s): I10 - Essential (primary) hypertension Category: Medical Qualifiers: Hypertension type: primary hypertension Qualified Code(s): I10 - Essential (primary) hypertension (2) Hyperlipidemia: Comment: - Suggests resuming lipid-lowering agent treatment, as past concerns with liver enzyme elevations seem less concerning based on recent levels. - Upcoming lab work to further evaluate cholesterol levels; consideration of starting lipid-lowering medication dependent on results. Code(s): E78.5 - Hyperlipidemia, unspecified Category: Medical Qualifiers: Hyperlipidemia type: unspecified Qualified Code(s): E78.5 - Hyperlipidemia, unspecified (3) History of CVA (cerebrovascular accident): Comment: - Recommended physical therapy to address and improve left-sided weakness, particularly to prepare for anticipated physical activity at [employer]. - Recognized the patient?s goal of returning to running; outlined that physical therapy may support regaining function over time. Code(s): Z86.73 - Personal history of transient ischemic attack (TIA), and cerebral infarction without residual deficits Category: Medical (4) Presence of intrathecal baclofen pump: Comment: - The pump is functioning well; issues noticed during previous reductions in baclofen were noted Code(s): Z97.8 - Presence of other specified devices Category: Medical (5) MDD (major depressive disorder): Code(s): F32.9 - Major depressive disorder, single episode, unspecified Plan: - Continued use of fluoxetine is advisable; patient did not express any current mental health concerns during the conversation. Plan During today's visit, we addressed the patient's hypertension, hyperlipidemia, and the effects of his historical stroke. I explained that managing high cholesterol is crucial, and the patient's liver enzyme levels will be re-evaluated with lab tests. We discussed the potential need to restart statins, considering past liver function concerns have diminished. The importance of continuing physical activity to manage his blood pressure and overall health was underscored. I also detailed the advantages of resuming physical therapy to address lingering post-stroke weakness. The patient received the suggestion of telehealth as an alternative for future consultations due to potential parking inconveniences. Orders: Orders Comprehensive Met. Panel Today I10 - Essential (primary) hypertension Lipid Panel Today I10 - Essential (primary) hypertension PT Evaluation and Treatment Today Z86.73 - Personal history of transient ischemic attack (TIA), and cerebral infarction without residual deficits Complete Blood Count Auto Diff Today I10 - Essential (primary) hypertension Hemoglobin A1c Today I10 - Essential (primary) hypertension TSH reflex Free T4 Today I10 - Essential (primary) hypertension Vitamin D 25-OH Total Today I10 - Essential (primary) hypertension OT Evaluation and Treatment Today Z86.73 - Personal history of transient ischemic attack (TIA), and cerebral infarction without residual deficits Patient Instructions: - Continue taking prescribed medications: Aspirin, Fluoxetine, Lisinopril, Omeprazole. - Start reducing salt intake in your diet. - Maintain regular exercise: biking and yoga. - Plan for physical therapy sessions to improve left-side strength. - Get your blood work done as scheduled for cholesterol, vitamin D, and thyroid assessment. - Monitor blood pressure at home and report any significant changes. - Schedule a telehealth visit in two months for follow-up.
[2025-01-15 11:22] VITALS: BP 142/82; PULSE 76; RESP 17; TEMP 36.8; O2SAT 93; BMI 35.0
--- OUTSIDE RECORDS SUMMARY | 2025-01-15 12:31 | XMS_ITS | Clinical Summary ---
Author Organization [facility] Address [address] [facility] [address] [place] [phone] Phone Care Team Providers Care Service Team Leader Name Role Phone Claudy Logan MD Primary Care Provider Social History Tobacco Use Types Packs/Day Years Used Date Smoking Tobacco: Never Assessed Education Answer Date Recorded Are you interested in more education? Not on kim e 09/09/2022 Are you concerned about learning? Not on file 09/09/2022 No 09/09/2022 No 09/09/2022 Digital Access Answer Date Recorded No 10/08/2022 No 10/08/2022 No 10/08/2022 Reliable internet access at home? Not on file 10/08/2022 Device with a working camera? Not on file Sex and Gender Information Value Date Recorded Sex Assigned at Not on file Legal Sex Male 5:52 PM EST Gender Identity Not on file Sexual Orientation Not on file Plan of Treatment Health Maintenance Due Date Last Done Comments LIPID PANEL 1958 DEPRESSION SCREENING 1970 SMOKING Hx and SMOKELESS TOBACCO SCREENING 09/20/1971 HEPATITIS C SCREENING 1976 COLOGUARD 09/20/2003 COLONOSCOPY 09/20/2003 COLORECTAL CANCER SCREENING 09/20/2003 FIT TEST 09/20/2003 FOBT 09/20/2003 SIGMOIDOSCOPY 09/20/2003 VIRTUAL COLONOSCOPY 09/20/2003 ZOSTER VACCINES (1 of 2) 2008 PNEUMOCOCCAL VACCINES (50+ years) (2 of 2 - PCV) 01/07/2020 01/06/2019 COVID-19 VACCINE ( season) 2024 08/27/2020, 08/23/2020, 08/04/2020, Additional history exists Adult Td,Tdap Booster 01/09/2027 01/09/2017 , 10/01/2006, 10/01/2006 RSV VACCINE (1 - 1-dose 75+ series) 2033 HEPATITIS A VACCINES Aged Out 10/09/2018 No long er eligible based on patient's age to complete this topic HIB VACCINES Aged Out No longer eligi ble based on patient's age to complete this topic MENINGOCOCCAL VACCINES (ACWY) Aged Out No longer eligible based on patient's age to complete this topic MENINGOCOCCAL VACCINES (B) Aged Out N o longer eligible based on patient's age to complete this topic Medical Devices Not on file Insurance [facility] P[employer] EPO [employer] [employer] [facility] [employer] EPO [place], [place] [facility] [employer] [facility] [employer]PO [facility] [employer] [facility] [employer] EPO [facility] [place] [address] [place] [address] PPO EPO [employer] P[employer] EPO Care Teams Service Team Leader Relationship Specialty Start Date End Date Claudy Logan MD [address] [place] [address] [place] [address] PCP - General Internal Medicine 01/09/18 Additional Source Comments The information contained in this document represents components of the legal health record. It is not the complete legal health record.[facility]
--- OUTSIDE RECORDS SUMMARY | 2025-01-15 12:31 | XMS_ITS | Encounter Summary ---
Author Organization [facility] Address [address] [facility] [address] [place] [address] Phone Care Team Providers Care Papeterie Table Assembler Name Role Phone Claudy Logan MD Primary Care Provider Claudy Logan MD Primary Care Provider Reason for Referral * Physical Therapy (Routine) - Closed Specialty Diagnoses / Procedures Referred By Contac t Referred To Contact Physical Therapy Diagnoses Encounter for rehabilitation Juancarlos Sims MD Phone: tel: fax: [email or web address] [address] [place] [address] Phone: tel: Referral ID Status Reason Start Date Expiration Date Visits Re quested Visits Authorized [id number] Closed 01/09/2018 11/10/2018 34 34 Encounter Details Date Type Department Care Team (Latest Contact Info) Description 12/12/2017 Transcribe Orders [facility] [address] [place] [address] Claudy Logan MD [address] [place] [address] [place] [address] Encounter for rehabilitation (Primary Dx) Social History Tobacco Use Types Packs/Day Years Used Date Smoking Tobacco: Never Assessed Sex and Gender Information Value Date Recorded Sex Assigned at Not on file Legal Sex Male 5:52 PM EST Gender Identity Not on file Sexual Orientation Not on file documented as of this encounter Plan of Treatment Scheduled Referrals Name Type Priority Associated Diagnoses Orde r Schedule Ambulatory referral to [facility] Physical Therapy Outpatient Referral Routine Encounter for rehabilitation Ordered: 12/12/2017 documented as of this encounter Visit Diagnoses Diagnosis Encounter for rehabilitation- Primary documented in this encounter Care Teams Papeterie Table Assembler Relationship Specialty Start Date End Date Claudy Logan MD [address] [place] [address] [place] [address] PCP - General Internal Medicine 06/29/17 01/08/18 Claudy Logan MD [address] [place] [address] [place] [address] PCP - General Internal Medicine 01/09/18 documented as of this encounter Additional Source Comments The information contained in this document represents components of the legal health record. It is not the complete legal health record.[facility]
--- OUTSIDE RECORDS SUMMARY | 2025-01-15 12:31 | XMS_ITS | Patient Health Record ---
Author Organization [facility] Address [address] [place] [id number] Care Team Providers Care Roll Icer Machine Name Role Phone Desmond (RETIRED) Claudy LUBIN Primary Care Provide r Kaden Gerardo Jr Allergies No Known Allergies Reason For [...] Problem Status W/U Status Risk Notes Problem [id number] Colon cancer screening (Z12.11) Active confirmed Problem [id number] Encounter for long-term (current) use of aspirin (Z79.82) Active confirmed Vital Signs Temperature 97.8 degrees Fahrenheit 08/25/2024 Blood pressure diastolic 01 mm Hg 08/25/2024 Height 73 in 08/25/2024 Blood pressure systolic 001 mm Hg 08/25/2024 Weight 261 lbs 08/25/2024 BMI 34.43 kg/m2 08/25/2024 Encounters Encounter Location Date Provider Diagnosis [facility] [address] [place] [phone] 2024 Kaden Calderon Jr Colon cancer screening Z12.11 [facility] [address] [place] [address] 08/25/2024 Kaden Calderon Jr Colon cancer screening Z12.11 and Encounter for long-term (current) use of aspirin Z79.82 [facility] [address] [place] [phone] 04/30/2024 Kaden Calderon Jr Assessments Encounter Date Diagnosis (ICD Code) Assessment Notes Treatment Notes Treatment Clinical Notes Section Notes 2024 Colon cancer screening (ICD-10 - Z12.11) 08/25/2024 Colon cancer screening (ICD-10 - Z12.11) [...] Test Test Name Order Date COLONOSCOPY 08/25/2024 Insurance Providers Payer Name Payer Address Payer Phone Subscriber Number Group Number Insured Name Patient Relationship to Insured Coverage Start Date Coverage End Date [facility] [address] [place], [place] [id number] PRAVEEN RICHARDSON Self - patient is the insured Medical (General) History Medical History History ICD Code CVA with left-sided weakness Hypertension Surgical History Surgery Date(Month/Year) baclofen pump 2024
--- OUTSIDE RECORDS SUMMARY | 2025-01-15 12:31 | XMS_ITS | Encounter Summary ---
Author Organization [facility] Address [address] [place] [phone] Phone Care Team Providers Care Site Supervising Technical Operator Name Role Phone Pcp, Unknown Primary Care Provider Claudy Menezes MD Primary Care Provider Claudy Logan MD Primary Care Provider Encounter Details Date Type Department Care Team (Late st Contact Info) Description 06/28/2017 Ancillary Orders Virtual Department [address] [place] [address] Katya Strickland, ILEANA [address] [place] [phone] Low back pain, unspecified back pain laterality, unspecified chronicity, with sciatica presence unspecified Social History Tobacco Use Types Packs/Day Years Used Date Smoking Tobacco: Never Assessed Sex and Gender Information Value Date Recorded Sex Assigned at Not on file Legal Sex Male 5:52 PM EST Gender Identity Not on file Sexual Orientation Not on file documented as of this encounter Plan of Treatment Not on file documented as of this encounter Results * XR LUMBOSACRAL SPINE 4 OR MORE VIEWS (06/29/2017 1:12 PM EST) Anatomical Region Laterality Modality L-spine Radiographic Cris ging 06/29/2017 1:45 PM EST Impressions 06/29/2017 1:49 PM EST Lumbar spondylosis with mild mid to lower lumbar disc space narrowing and bony spurring. No compression fracture or subluxation is seen. Mild facet joint sclerosis without pars defects seen. S/S: Low back pain, lumbar spondylosis, difficulty walking POS - [id number] Narrative 06/29/2017 1:49 PM EST COMPARISON: None FINDINGS: AP, lateral, both oblique, and coned-down views of the lumbar spine are obtained. The pedicles appear intact. There is loss of disc space height evident at L3-4 and L4-5 with mild bony spurring. No compression fracture or acute subluxation is seen. On oblique views there is mild lower lumbar facet joint sclerosis. No pars defects are seen. The SI joints are notable for some mild sclerosis on the left. What is likely a nerve stimulator is evident extending from the right at the L4 level. Procedure Note Denys Manuel MD - 06/29/2017 COMPARISON: None FINDINGS: AP, lateral, both oblique, and coned-down views of the lumbar spine areobtained. The pedicles appear intact. There is loss of disc space height evident at L3-4 and L4-5 with mild bonyspurring. No compression fracture or acute subluxation is seen. On oblique views there is mild lower lumbar facet joint sclerosis. No parsdefects are seen. The SI joints are notable for some mild sclerosis on the left. What is likely a nerve stimulator is evident extending from the right atthe L4 level. IMPRESSION: Lumbar spondylosis with mild mid to lower lumbar disc space narrowing andbony spurring. No compression fracture or subluxation is seen. Mild facetjoint sclerosis without pars defects seen. S/S: Low back pain, lumbar spondylosis, difficulty walking POS - [id number] Katya Strickland DESK EDITOR IMG XR SPINE Final Result documented in this encounter Visit Diagnoses Diagnosis Low back pain, unspecified back pain laterality, unspecified chronicity, with sciatica presence unspecified Low back pain, unspecified back pain laterality, unspecified chronicity, with sciatica presence unspecified documented in this encounter Care Teams Site Supervising Technical Operator Relationship Specialty Start Date End Date Pcp, Unknown PCP - General 06/28/17 06/28/17 Claudy Logan MD [address] [place] [address] [place] [address] PCP - General Internal Medicine 06/29/17 01/08/18 Claudy Logan MD [address] [place] [address] Dr Brice, NIKKI [address] PCP - General Internal Medicine 01/09/18 documented as of this encounter Additional Source Comments The information contained in this document represents components of the legal health record. It is not the complete legal health record.[facility]
--- OUTSIDE RECORDS SUMMARY | 2025-01-15 12:31 | XMS_ITS | Encounter Summary ---
Author Organization [facility] Address [address] [address] Phone Care Team Providers Care Visual Educator Name Role Phone Claudy Logan MD Primary Care Provider Claudy Logan MD Primary Care Provider Reason for Referral * Physical Therapy (Routine) - Closed Specialty Diagnoses / Procedures Referred By Contisaiah t Referred To Contact Diagnoses Encounter for rehabilitation System, Provider Not In, PhD [address] [address] Phone: tel: Referral ID Status Reason Start Date Expiration Date Visits Re quested Visits Authorized [id number] Closed 06/29/2017 06/29/2018 50 50 Encounter Details Date Type Department Care Team (Latest Contact Info) Description 06/29/2017 Transcribe Orders [facility] [address] [place] [phone] Katya Strickland NP [address] [place] [address] Encounter for rehabilitation (Primary Dx) Social History [...] Diagnoses Orde r Schedule Ambulatory referral to [facility] Physical Therapy Outpatient Referral Routine Encounter for rehabilitation Ordered: 06/29/2017 documented as of this encounter Visit Diagnoses Diagnosis Encounter for rehabilitation- Primary documented in this encounter Care Teams Visual Educator Relationship Specialty Start Date End Date Claudy Logan MD [address] [place] [address] [place] [address] PCP - General Internal Medicine 06/29/17 01/08/18 Claudy Logan MD [address] [place] [address] Dr PINEDO Cody [place] [address] PCP - General Internal Medicine 01/09/18 documented as of this encounter Additional Source Comments The information contained in this document represents components of the legal health record. It is not the complete legal health record.[facility]
== END 2025-01-15 14:06 | disposition home or self-care (01) ==
PROVIDERS: PCP Student in an Organized Health Care Education/Training Program; Visit Provider Student in an Organized Health Care Education/Training Program
DX: I10 Essential (primary) hypertension (principal); E78.5 Hyperlipidemia, unspecified; Z86.73 Personal history of transient ischemic attack (TIA), and cerebral infarction without residual deficits; Z97.8 Presence of other specified devices; F32.9 Major depressive disorder, single episode, unspecified

== ENCOUNTER 2025-02-19 12:39 | Outpatient (REF) | payer BC, SELFPAY ==
[2025-02-19 14:14] LABS: MANUAL DIFF FLAG NO
[2025-02-19 14:51] LABS: Hematocrit 49.5 % (42.0-52.0); Hemoglobin 16.0 g/dl (14.0-18.0); Imm Gran Abs Auto 0.07 X10*3/uL (0.00-0.03); Imm Gran Pct Auto 0.7 % (0.0-0.4); Lymphocytes Absolute Auto 1.4 X10*3/uL (1.2-4.9); Mean Corpuscular HGB Conc 32.3 g/dl (31.0-36.0); Mean Corpuscular Hemoglobin 28.7 pg (27.0-33.0); Mean Corpuscular Volume 88.7 fL (80.0-98.0); NRBC Abs Auto 0.000 X10*3/uL (0.0-0.012); NRBC Pct Auto 0.0 /100WBC (0.0-0.2); Platelet Count 264 X10*3/uL (160-400); Red Blood Count 5.58 X10*6/uL (4.60-5.80); White Blood Count 9.8 X10*3/uL (4.8-10.8)
[2025-02-19 16:57] LABS: Alanine Aminotransferase 54 U/L (0-40); Albumin Level 4.6 g/dL (3.5-5.0); Alkaline Phosphatase 111 U/L (39-117); Anion Gap 12 (12-20); Aspartate Amino Transferase 43 U/L (5-37); Blood Urea Nitrogen 9 mg/dL (9-16); Calcium 9.2 mg/dL (8.4-10.2); Carbon Dioxide 28 mmol/L (22-29); Chloride 106 mmol/L (96-108); Cholesterol 219 mg/dL (<200); Estimated Glomerular Filt Rate > 60; HDL Cholesterol 33 mg/dL (>40); Potassium 4.2 mmol/L (3.3-5.1); Sodium 142 mmol/L (135-145); Total Protein 8.2 g/dL (6.5-8.0); Triglycerides 105 mg/dL (<150)
== END 2025-02-19 12:40 | disposition home or self-care (01) ==
LOC: HO.LAB 12:39
PROVIDERS: PCP Student in an Organized Health Care Education/Training Program; Visit Provider Student in an Organized Health Care Education/Training Program
DX: Z13.21 Encounter for screening for nutritional disorder (principal); Z13.1 Encounter for screening for diabetes mellitus; I10 Essential (primary) hypertension
CPT/HCPCS: 36415; 80053; 80061; 82306; 83036; 84443; 85025

== ENCOUNTER 2025-03-19 14:00 | Outpatient (RCR) | payer BC, SELFPAY ==
--- NOTE | 2025-02-19 14:11 | MHC.OT.EP ---
[facility] Office [address] [phone] F: [phone] F: [phone] Occupational Therapy Plan of Care Patient Name: Taras Prince Date of Evaluation: 02/19/25 Diagnosis: Left Hand Weakness Pain Location: Pain free at most times Some pain and tightness w/ stretching Assessment: 64 yo male w/ hx of stroke in 2008, lost all use of left side with more return in leg than leg. He has been through several rounds of therapy for OT and PT and reports using all sorts of things for therapy . He reports he has lost some of his mobility over the past year, but there has been no significant change. He does have Baclofen pump (10 years) and reports some results w/ muscle spasticity. On assessment today, pt w/ limited, but functional range in elbow and shoulder with good strength within available range. He has high tone through out UE, but higher distally with non-functional hand for active grasping or object manipulation and use. LUE impairments are chronic with 16 year old stroke, and high expectations for functional return, but at this time w/ will focus therapy on home program to facilitate reduction of tone, increase passive and active range through LUE and works towards functional grasp and release of left hand to assist w/ object manipulation and bimanual tasks. Frequency and Duration: The patient will be seen 2x/wk for 4 weeks Short Term Goals: Ind w/ self AA/PROM to LUE all joint Pt to demo ease w/ active left digit extension Pt to demo good follow through w/ muscle inhibition for reduction of tone Senior Living Goals: Pt to demo active grasp and release of 1lb object for functional use of left hand w/ daily tasks Pt to demo active wrist flex/ext to facilitate tenodesis pattern to assist w/ grasping and release Pt to report ease w/ left hand grasp on object to play with grandchildren (hopeful to grasp hockey stick) Treatment Plan: Therapeutic Exercise Therapeutic Activity Home Exercise Program Splinting Neuro Re-ed Patient Education ADL Training NMES MHP Joint Mobilization Soft Tissue Mobilization Kinesiotaping Electronically Signed By: Shani Graves, OTR/L Please Sign and return to therapist. Thank you once again for your referral.
--- NOTE | 2025-03-20 10:32 | MHC.OT.DC ---
[facility] Office [address] [phone] F: [phone] F: [phone] Occupational Therapy Discharge Note Patient Name: Chao Oconnor Provider: Carlitos Pandey Diagnosis: Left Hand Weakness Date of Surgery: Date of Evaluation: 02/19/25 Date of Discharge: Treatments to Date: 7 Cancellations to Date: No Shows to Date: Discharge Status: Improved Function Independent with HEP Discharge Summary: Pt tolerated therapy well today; his Genevieve was present today to go over HEP / stretching/ use of heat at home to decrease tone. Pt was a pleasure to work with, Thank you for including our OT team in his POC! Electronically Signed By: Farheen Gutierrez OTR/L Reviewed/agree with student documentation: N/A Therapist: Please Sign and return to therapist, thank you for your referral.
== END 2025-03-20 10:32 | disposition home or self-care (01) ==
LOC: HO.OT 14:00
PROVIDERS: PCP Student in an Organized Health Care Education/Training Program; Visit Provider Student in an Organized Health Care Education/Training Program
DX: G81.92 Hemiplegia, unspecified affecting left dominant side (principal); R53.1 Weakness
CPT/HCPCS: 29125; 97110; 97112; 97140; 97165; 97530; 97760

== ENCOUNTER 2025-04-16 12:34 | Outpatient (AMB) | payer BC, SELFPAY ==
--- NOTE | 2025-04-16 12:23 | A.OFFPC_ITS ---
Intake Visit Reasons: 3 month f/u Allergies No Known Allergies Allergy (Verified 01/15/25 10:59) Medication List - Last Reconciled 04/16/25 by Carlitos Pandey MD amlodipine 5 mg PO DAILY [Ankle Foot Orthosis As directed] aspirin 81 mg PO DAILY fluoxetine 20 mg PO DAILY lisinopril 10 mg PO DAILY 90 days omeprazole 20 mg PO DAILY PRN Tobacco use date assessed: 09/18/24 Dental Screening Dental Screen Date: 09/18/24 HPI HPI Comments History of Present Illness Details History of Present Illness The patient is a 64-year-old male presenting for a follow-up visit for chronic condition management and review of recent lab results. He has a history of a stroke and utilizes an ankle-foot orthosis (AFO) for mobility, which is [id number] and needs replacement. He recently attended physical therapy, which he found beneficial, and plans to resume after obtaining his new AFO. Recent blood work from February revealed elevated blood glucose levels, meeting the criteria for a new diagnosis of diabetes, and high cholesterol with an LDL level of 165 mg/dL. The patient's history includes depression, for which he takes fluoxetine. He reports his mood is fine but continues the medication at the suggestion of his family. He also has a history of hypertension, managed with amlodipine 5 mg and lisinopril 10 mg. He reports feeling well with no complaints and is actively exercising on a bicycle. He notes that his weight fluctuates cyclically and he plans to lose 30 pounds by September. Medical History: - History of cerebrovascular accident - Depression - Hypertension Medications: - Fluoxetine for depression - Amlodipine 5 mg for hypertension - Lisinopril 10 mg for hypertension - Aspirin Social History: - Exercise: The patient reports riding a n exercise bicycle at the time of the appointment. - Functional Status: Utilizes an ankle-f oot orthosis for mobility. - Family: The patient has four children and three grandchildren. - Weight Management: Reports his weight is cyclical and he intends to lose 30 pounds by September. Results - Labs (February): Blood work revealed el evated blood glucose levels meeting criteria for diabetes and high cholesterol with an LDL of 165 mg/dL. 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 Father No problems noted. Social History Household Members: Spouse Housing: House Are you a primary healthcare applications analyst to a significant other at home: No Patient Tobacco Use Status: Never used Tobacco e-Cigarette/Vaping Use: Never Used service: No Current occupational status: retired Cognitive needs: No Hearing needs: No Vision needs: Yes (rx glasses) Questionnaire Thrive Questionnaire Date Thrive assessed: 09/18/24 MAHOGANY-7 AMB Questionnaire MAHOGANY-7 Date MAHOGANY - 7 assessed: 09/18/24 Source: Developed by Drs. Jos Tang, Razia Harper, Wilman Figueroa and colleagues, with an educational gabi from [employer]. Review of Systems Narrative Review of Systems - General: Reports feeling very well, denies any complaints. - Psychiatric: Reports mood is fine. Physical exam (Primary Care) Tobacco/Smoking Status: Tobacco use Status Tobacco use date assessed 09/18/24 04/16/25 12:23 Patient Tobacco Use Status Never used Tobacco 04/16/25 12:23 e-Cigarette/Vaping Use Never Used 04/16/25 12:23 Thrive Assessment: Date of Thrive Assessment Date Thrive assessed 09/18/24 04/16/25 12:23 Telehealth Telehealth Telehealth Platform: Telephone Location of provider rendering services: practice address Location of patient: address on file Patient Identification confirmed using: Name, : Yes Telehealth method: voice only Patient verbally consented to treatment: Yes Patient verbally consented to billing insurance company: Yes Patient informed of any privacy concerns related to visit: Yes Minutes spent on Phone/Video with Pt.: 9 Coding Level of Care Code Tele Est Pt Level 4 (96601) Complex visit Add On G2211 Diagnoses Type 2 diabetes mellitus without complication, without long-term current use of insulin E11.9 Diabetes mellitus type: type 2 Diabetes mellitus transit authority police officer insulin use: without care home use Diabetes mellitus complication status: without complication Primary hypertension I10 Hypertension type: primary hypertension Hyperlipidemia, unspecified hyperlipidemia type E78.5 Hyperlipidemia type: unspecified History of CVA (cerebrovascular accident) Z86.73 Presence of intrathecal baclofen pump Z97.8 Major depressive disorder, remission status unspecified, unspecified whether recurrent F32.9 Depression Type: major depressive disorder Major depression recurrence: unspecified whether recurrent Active/Remission status: remission status unspecified Assessment & Plan Assessment & Plan (1) Diabetes: Comment: - The patient was newly diagnosed with diabetes based on lab work from February. - A prescription for metformin 500 mg to be taken once daily in the morning will be sent to his pharmacy. - The patient is encouraged to continue staying active and lose weight, which may improve his blood sugar levels. - A follow-up visit is scheduled in three months with repeat blood work to be done the week prior to check his glucose levels. Code(s): E11.9 - Type 2 diabetes mellitus without complications Category: Medical Qualifiers: Diabetes mellitus type: type 2 Diabetes mellitus care home insulin use: without care home use Diabetes mellitus complication status: without complication Qualified Code(s): E11.9 - Type 2 diabetes mellitus without complications (2) Hypertension: Comment: - The patient will continue his current regimen of amlodipine 5 mg and lisinopril 10 mg for blood pressure management. Code(s): I10 - Essential (primary) hypertension Category: Medical Qualifiers: Hypertension type: primary hypertension Qualified Code(s): I10 - Essential (primary) hypertension (3) Hyperlipidemia: Comment: - The patient has been diagnosed with hypercholesterolemia, with a recent LDL of 165 mg/dL, which requires treatment. - A prescription for atorvastatin 20 mg to be taken every night will be sent to his pharmacy. - The patient is encouraged to continue an active lifestyle and focus on weight loss to help manage his cholesterol. - Follow-up labs will be checked in three months. Code(s): E78.5 - Hyperlipidemia, unspecified Category: Medical Qualifiers: Hyperlipidemia type: unspecified Qualified Code(s): E78.5 - Hy perlipidemia, unspecified (4) History of CVA (cerebrovascular accident): Comment: - A prescription for a new ankle-foot orthosis (AFO) will be ordered as his current one is [id number]. - The patient has found physical therapy beneficial and will resume it after receiving his new AFO. - The patient is encouraged to continue PT as needed and as covered by insurance. Code(s): Z86.73 - Personal history of transient ischemic attack (TIA), and cerebral infarction without residual deficits Category: Medical (5) Presence of intrathecal baclofen pump: Comment: - The pump is functioning well; issues noticed during previous reductions in baclofen were noted Code(s): Z97.8 - Presence of other specified devices Category: Medical (6) Depression: Comment: - The patient reports his mood is fine, but his family has noted the benefits of his medication. - He will continue taking fluoxetine. Code(s): F32.A - Depression, unspecified Category: Medical Qualifiers: Depression Type: major depressive disorder Major depression recurrence: unspecified whether recurrent Active/Remission status: remission status unspecified Qualified Code(s): F32.9 - Major depressive disorder, single episode, unspecified Plan I reviewed the patient's February blood work with him, which indicated a new diagnosis of diabetes and significantly high cholesterol, with an LDL of 165. I discussed the necessity of starting treatment for both conditions and prescribed metformin 500 mg daily for diabetes and atorvastatin 20 mg nightly for hypercholesterolemia. I emphasized that continued physical activity and weight loss could greatly improve these conditions, with the potential to adjust or even discontinue medications in the future. We also discussed his ongoing need for physical therapy and the order for a new AFO. We agreed to a follow-up appointment in three months with repeat lab work to be completed the week prior to assess his response to the new medications. I confirmed that the prescriptions would be sent to his preferred pharmacy, [facility]. Orders: Orders Hemoglobin A1c 3 Months E11.9 - Type 2 diabetes mellitus without complications Medications: New metformin 500 mg PO DAILY 90 tabs 1RF amlodipine 5 mg PO DAILY 90 tabs 3RF atorvastatin (Lipitor) 20 mg PO BEDTIME 90 tabs 0RF Patient Instructions: - Take metformin 500 mg by mouth once every morning for your diabetes. - Take atorvastatin 20 mg by mouth every night for your high cholesterol. - Continue taking your fluoxetine, amlodipine, lisinopril, and aspirin as you have been. - Continue to stay active and exercise regularly. - You will receive an order for a new ankle brace (AFO). Once you get it, you s hould go back to physical therapy. - Please schedule an in-person follow-up appointment for three months from now. - You will need to get blood work done one week before your next appointment to check your sugar and cholesterol levels.
== END 2025-04-16 12:38 | disposition home or self-care (01) ==
LOC: HO.HMCHD 12:34
PROVIDERS: PCP Student in an Organized Health Care Education/Training Program; Visit Provider Student in an Organized Health Care Education/Training Program
DX: E11.69 Type 2 diabetes mellitus with other specified complication (principal); I10 Essential (primary) hypertension; E78.5 Hyperlipidemia, unspecified; Z86.73 Personal history of transient ischemic attack (TIA), and cerebral infarction without residual deficits; Z97.8 Presence of other specified devices; F32.9 Major depressive disorder, single episode, unspecified